=== PATIENT | male | born 1960 | race Caucasian/White ===

== ENCOUNTER 2020-09-02 14:39 | Emergency (ER) | payer BC, OTHER ==
--- OUTSIDE RECORDS SUMMARY | 2020-09-02 14:55 | XMS REPORT | Continuity of Care Document ---
:1960 Author Organization [facility] t Address [address] [place] [address] Care Team Providers Name Role Phone Unavailable Unavailable Unavailable Problems Condition Condition Condition Status Onset Resolution Last Treating Co mments Source Name Details Category Date Date Treatment Clinician Date Mixed Mixed Problem Active [facility] hyperlipid Collette kes - emia emia [facility] Allergic Allergic Problem [facility] Emotional Emotional Problem Active [facility] disorder disorder [facility] Screening Screening Problem Active [facility] - prostate prostate [facility]ori a cancer cancer l [facility] Encounter Encounter Problem Active [facility] - general general Memoria adult adult l medical medical Outpati examinatio examinatio en t n with n with Clinics abnormal abnormal findings findings Type 2 Type [address] [facility] diabetes diabetes [facility] - mellitus mellitus Memori a with with l hyperglyce hyperglyce Ou tpati kavita, kavita, ent without without Clinics long-term long-term current current use of use of insulin insulin Allergies, Adverse Reactions, Alerts This patient has no known allergies or adverse reactions. Medications Ordered Filled Start Stop Current Ordering Indication Dosage Frequency Signature Comments Components Source Medication Medication Date Date Medication? Clinician (SIG) Name Name Allergy Allergy Yes Bella [address] [facility] Relief Relief [facility] Aspirin Aspirin Yes Bella [address] [facility] Adult Low Adult Low [facility] - Strength Strength [facility]ics Rosuvastati Rosuvastati Yes Bella take one [facility] n Calcium n Calcium Keller tablet by [facility] - mouth once Memoria daily at l bedtime [facility] Cetirizine Cetirizine Yes Bella [address] [facility] HCl HCl [place] [facility] - [facility] Clinics Famotidine Famotidine Yes Bella [address] [facility] at bedtime [facility] - as needed [facility] l [facility] Metformin Metformin Yes Bella take one [facility] HCl HCl [facility] tablet by [facility] Immunizations Ordered Filled Immunization Date Status Comments Sour e Immunization Name Name Flucelvax - single Flucelvax - single 2019-09-[address] [facility] - dose syringe dose syringe 00:00:00 [facility] Flucelvax - Flucelvax - 2018-09-[address] [facility] - multidose vial multidose vial 00:00:00 [facility] Outpatient Clinics Procedures This patient has no known procedures. Encounters Start End Encounter Admission Attending Care Care Encounter Source Date/Time Date/Time Type Type Clinicians Facility Department ID 2020-03-12 2020-03-12 Outpatient Alexia Halet [id number] [facility] 08:00[facility]00 08:00:00 [facility] Medicine Outpati ent Clinics 2019-09-11 2019-09-11 [facility] [id number] [address] 09:40:00 09:40:00 [facility] Medicine Outpati ent Clinics 2019-04-05 2019-04-05 [facility] [id number] [facility] 11:40:00 11:40:00 [facility] Medicine Outpati ent Clinics 2019-03-28 2019-03-28 [facility] [id number] [address] 11:36:00 11:36:00 [facility] Medicine Medicine Outpati ent Clinics 2019-01-09 2019-01-09 [facility] [id number] [address] 08:20:00 08:20:00 [facility] Medicine Medicine Outpati ent Clinics 2018-10-30 2018-10-30 [facility] [id number] 11:14:00 11:14:00 [facility] Medicine Outpati ent Clinics 2018-09-28 2018-09-28 [facility] [id number] [facility] 10:48:00 10:48:00 [facility] 2018-09-26 2018-09-26 Outpatient Alexia Martinez [id number] [facility] 09:00:00 09:00:00 [facility] ent Clinics Results This patient has no known results.
--- NOTE | 2020-09-02 16:04 | RAD REPORT ---
EXAM DESCRIPTION: RAD - Chest Single View - 09/02/2020 3:43 pm CLINICAL HISTORY: COUGH COMPARISON: None TECHNIQUE: AP portable chest image was obtained 09/02/2020 3:43 pm . FINDINGS: Lungs are clear. Heart and vasculature are normal. No measurable pleural effusion and no p neumothorax. No acute bony abnormality seen. No acute aortic findings suspected. IMPRESSION: No acute cardiopulmonary process.
[2020-09-02 16:31] LABS: Urine Blood NEGATIVE (NEG); Urine Glucose NEGATIVE (NEG); Urine Protein NEGATIVE (NEG); Urine Specific Gravity 1.025 (1.005-1.030); Urine pH 5.5 (5.0-7.0)
--- NOTE | 2020-09-02 18:35 | ER ---
Nurse's Notes [facility] Name: Rod Martines Age: 59 yrs Sex: Male : 1960 Arrival Date: 09/02/2020 Time: 14:41 Bed 20 Private MD: Diagnosis: Acute upper respiratory infection, unspecified Presentation: 09/02 15:08 Chief complaint: Patient states: Lightheaded, fever of 99F, diarrhea all morning long. ca1 My daughter was admitted to [facility] last night for Covid and I was exposed to her. My muscles are aching right now, cough and flu like symptoms but I had a flu shot this season. I've had symptoms for a week now. Gets better then comes back again. Coronavirus screen: Client denies travel out of the [place] in the last 14 days. diarrhea, fatigue, fever, headache, muscle pain, Client presents with at least one sign or symptom that may indicate coronavirus-19. Standard/surgical mask placed on the client. Provider contacted for isolation considerations. Ebola Screen: Patient negative for fever greater than or equal to 101.5 degrees Fahrenheit, and additional compatible Ebola Virus Disease symptoms Patient denies exposure to infectious person. Patient denies travel to an Ebola-affected area in the 21 days before illness onset. No symptoms or risks identified at this time. Initial Sepsis Screen: Does the patient meet any 2 criteria? No. Patient's initial sepsis screen is negative. Does the patient have a suspected source of infection? No. Patient's initial sepsis screen is negative. Risk Assessment: Do you want to hurt yourself or someone else? Patient reports no desire to harm self or others. Onset of symptoms was September 02, 2020. 15:08 Method Of Arrival: Ambulatory ca1 15:08 Acuity: NEAL 3 ca1 Historical: - Allergies: 15:13 No Known Allergies; ca1 - Home Meds: 15:13 Metformin Oral [Active]; ca1 - PMHx: 15:13 Diabetes - NIDDM; High Cholesterol; ca1 - PSHx: 15:13 Cervical laminectomy; ca1 - Immunization history:: Adult Immunizations up to date, Flu vaccine is up to date. - Social history:: Smoking status: Patient/guardian denies using tobacco, the patient reports quitting approximately 20 years ago. Screenin:45 Abuse screen: Denies threats or abuse. Denies injuries from another. Nutritional jl7 screening: No deficits noted. Tuberculosis screening: No symptoms or risk factors identified. Fall Risk None identified. Assessment: 18:45 General: Appears in no apparent distress. uncomfortable, Behavior is calm, cooperative, jl7 appropriate for age. Pain: Denies pain. Neuro: Level of Consciousness is awake, alert, obeys commands, Oriented to person, place, time, situation. Cardiovascular: Patient's skin is warm and dry. Respiratory: Airway is patent Respiratory effort is even, unlabored, Respiratory pattern is regular, symmetrical. Derm: Skin is pink, warm \T\ dry. Vital Signs: 15:08 BP 125 / 87; Pulse 92; Resp 19 S; Temp 97.1(TE); Pulse Ox 100% on R/A; Weight 83.91 kg ca1 (R); Height 5 ft. 8 in. (172.72 cm) (R); Pain 2/10; 18:13 Temp 99.3(O); aa5 15:08 Body Mass Index 28.13 (83.91 kg, 172.72 cm) ca1 ED Course: 14:41 Patient arrived in ED. ag5 15:12 Triage completed. ca1 15:13 Arm band placed on right wrist. ca1 15:21 Flu Sent. ca1 15:27 [facility]C [facility] kb 15:27 Chris Rendon MD is Attending Physician. kb 15:44 Chest Single View XRAY In Process Unspecified. EDMS 18:15 Carla Trent, RN is Primary Nurse. jl7 18:45 Patient has correct armband on for positive identification. Bed in low position. Call jl7 light in reach. Side rails up X 1. 18:45 COVID swab sent to lab. jl7 19:01 No provider procedures requiring assistance completed. Patient did not have IV access jl7 during this emergency room visit. Administered Medications: 18:59 Drug: Decadron 6 mg Route: PO; jl7 19:00 Follow up: Response: Medication administered at discharge. jl7 Outcome: 18:34 Discharge ordered by . kb 19:01 Discharged to home ambulatory. jl7 19:01 Condition: stable 19:01 Discharge instructions given to patient, Instructed on discharge instructions, follow up and referral plans. medication usage, Demonstrated understanding of instructions, follow-up care, medications, Prescriptions given X 2. 19:01 Patient left the ED. jl7 Signatures: Dispatcher [employer] EDMS Radha Meyer, ALMAZ-Carlos MUSE-Tanesha Jung, RN RN aa5 Carla Trent RN RN jl7 Nathalia Sher RN RN ca1 Jose A Ceballos [facility]
--- NOTE | 2020-09-02 18:35 | EDPHYS ---
Physician Documentation [facility] Name: Rod Martines Age: 59 yrs Sex: Male : 1960 Arrival Date: 09/02/2020 Time: 14:41 Bed 20 Private MD: ED Physician Chris Rendon HPI: 09/03 00:17 This 59 yrs old Male presents to ER via Ambulatory with complaints of Fever, kb Cough, R/O COVID. 00:17 The patient or guardian reports cough, that is intermittent, described as moderate, kb with no sputum, flu symptoms, low-grade fever, myalgias. Onset: The symptoms/episode began/occurred 1 week(s) ago. Severity of symptoms: At their worst the symptoms were moderate, in the emergency department the symptoms are unchanged. Modifying factors: The symptoms are alleviated by nothing, the symptoms are aggravated by nothing. Associated signs and symptoms: Pertinent positives: diarrhea, fever, Pertinent negatives: chest pain, ear ache, nausea, rhinorrhea, sore throat, vomiting. The patient has not experienced similar symptoms in the past. The patient has not recently seen a physician. Pt reports daughter has COVID. He has had muscle aches, fever, cough for a week, diarrhea today. States "I got the flu shot so I don't know why I'm having all of these flu symptoms.". Historical: - Allergies: 09/02 15:13 No Known Allergies; ca1 - Home Meds: 15:13 Metformin Oral [Active]; ca1 - PMHx: 15:13 Diabetes - NIDDM; High Cholesterol; ca1 - PSHx: 15:13 Cervical laminectomy; ca1 - Immunization history:: Adult Immunizations up to date, Flu vaccine is up to date. - Social history:: Smoking status: Patient/guardian denies using tobacco, the patient reports quitting approximately 20 years ago. ROS: 09/03 00:18 Cardiovascular: Negative for chest pain, palpitations, and edema, Back: Negative for kb injury and pain, MS/Extremity: Negative for injury and deformity, Skin: Negative for injury, rash, and discoloration, Neuro: Negative for headache, weakness, numbness, tingling, and seizure. Constitutional: Positive for body aches, chills, fever, malaise. Respiratory: Positive for cough, Negative for dyspnea on exertion, hemoptysis, orthopnea, pleurisy, shortness of breath, sputum production, wheezing. Abdomen/GI: Positive for diarrhea. Exam: 00:18 Constitutional: This is a well developed, well nourished patient who is awake, alert, kb and in no acute distress. Head/Face: Normocephalic, atraumatic. Chest/axilla: Normal chest wall appearance and motion. Nontender with no deformity. No lesions are appreciated. Cardiovascular: Regular rate and rhythm with a normal S1 and S2. No gallops, murmurs, or rubs. Normal PMI, no JVD. No pulse deficits. Respiratory: Lungs have equal breath sounds bilaterally, clear to auscultation and percussion. No rales, rhonchi or wheezes noted. No increased work of breathing, no retractions or nasal flaring. Abdomen/GI: Soft, non-tender, with normal bowel sounds. No distension or tympany. No guarding or rebound. No evidence of tenderness throughout. Skin: Warm, dry with normal turgor. Normal color with no rashes, no lesions, and no evidence of cellulitis. MS/ Extremity: Pulses equal, no cyanosis. Neurovascular intact. Full, normal range of motion. Neuro: Awake and alert, GCS 15, oriented to person, place, time, and situation. Cranial nerves II-XII grossly intact. Motor strength 5/5 in all extremities. Sensory grossly intact. Cerebellar exam normal. Normal gait. Vital Signs: 09/02 15:08 BP 125 / 87; Pulse 92; Resp 19 S; Temp 97.1(TE); Pulse Ox 100% on R/A; Weight 83.91 kg ca1 (R); Height 5 ft. 8 in. (172.72 cm) (R); Pain 2/10; 18:13 Temp 99.3(O); aa5 15:08 Body Mass Index 28.13 (83.91 kg, 172.72 cm) ca1 MDM: 18:10 Patient medically screened. kb 09/03 00:17 Data reviewed: vital signs, nurses notes. Data interpreted: Pulse oximetry: on room air kb is 100 %. Interpretation: normal. Counseling: I had a detailed discussion with the patient and/or guardian regarding: the historical points, exam findings, and any diagnostic results supporting the discharge/admit diagnosis, lab results, radiology results, the need for outpatient follow up, a family practitioner, to return to the emergency department if symptoms worsen or persist or if there are any questions or concerns that arise at home. 09/02 15:15 Order name: Flu; Complete Time: 16:28 kb 09/02 15:55 Order name: Urine Dipstick--Ancillary (enter results); Complete Time: 16:34 bd 09/02 15:27 Order name: Chest Single View XRAY; Complete Time: 16:11 kb 09/02 18:33 Order name: COVID-19 kb Administered Medications: 09/02 18:59 Drug: Decadron 6 mg Route: PO; jl7 19:00 Follow up: Response: Medication administered at discharge. jl7 Disposition: 09/03 07:12 Co-signature as Attending Physician, Chris Rendon MD I agree with the assessment and kdr plan of care. Disposition: 09/02/20 18:34 Discharged to Home. Impression: Acute upper respiratory infection, unspecified. - Condition is Stable. - Discharge Instructions: Upper Respiratory Infection, Adult, [id number], COVID-19. - Prescriptions for Medrol (Jon) 4 mg Oral Tablets, Dose Pack - take 1 tablet by ORAL route as directed - follow package instructions; 1 packet. Zithromax 500 mg Oral Tablet - take 1 tablet by ORAL route once daily for 5 days; 5 tablet. - Medication Reconciliation Form, Thank You Letter, Antibiotic Education, Prescription Opioid Use form. - Follow up: Emergency Department; When: As needed; Reason: Worsening of condition. Follow up: Private Physician; When: 2 - 3 days; Reason: Recheck today's complaints, Continuance of care, Re-evaluation by your physician. Signatures: Dispatcher [employer] EDUT Radha Meyer, Chris Masters MD MD kdr Leal, Jahala, RN RN jl7 Nathalia Sher RN RN ca1 Corrections: (The following items were deleted from the chart) 09/02 19:01 18:34 09/02/2020 18:34 Discharged to Home. Impression: Acute upper respiratory jl7 infection, unspecified. Condition is Stable. Forms are Medication Reconciliation Form, Thank You Letter, Antibiotic Education, Prescription Opioid Use. Follow up: Emergency Department; When: As needed; Reason: Worsening of condition. Follow up: Private Physician; When: 2 - 3 days; Reason: Recheck today's complaints, Continuance of care, Re-evaluation by your physician. kb
[2020-09-02] MEDS ORDERED: dexAMETHasone 4 MG TAB ONE (18:59)
== END 2020-09-02 19:01 | disposition home or self-care (01) ==
LOC: ER 14:39
DX: U07.1 COVID-19 (principal); J06.9 Acute upper respiratory infection, unspecified; E11.9 Type 2 diabetes mellitus without complications
CPT/HCPCS: 81003; 87804 ×2; 71045; 99284; U0002; J8540

== ENCOUNTER 2020-09-13 18:33 | Emergency (ER) | payer BC ==
--- OUTSIDE RECORDS SUMMARY | 2020-09-13 18:34 | XMS REPORT | Continuity of Care Document ---
:1960 Author Organization [facility] t Address [address] [place] [address] Care Team Providers Name Role Phone Unavailable Unavailable Unavailable Problems Condition Condition Condition Status Onset Resolution Last Treating Co mments Source Name Details Category Date Date Treatment Clinician Date Mixed Mixed Problem Active [facility]lipid Collette kes - emia emia [facility] Allergic Allergic Problem Active [facility] Emotional Emotional Problem Active [facility] disorder disorder [facility] Screening Screening Problem Active [facility] - prostate prostate Memori a cancer cancer l [facility] Encounter Encounter Problem Active [...] Bella [address] [facility] Relief Relief [place] [facility] Aspirin Aspirin Yes Bella [address] [facility] Adult Low Adult Low [place] Luke s - Strength Strength Memoria l [facility] Rosuvastati Rosuvastati Yes Bella take one [facility] n Calcium n Calcium [place] tablet by [facility] - mouth once Memoria daily at l bed[facility] Cetirizine Cetirizine Yes Bella [address] [facility] [address] HCl HCl [place] [facility] - [facility] ent Clinics Famotidine Famotidine Yes Bella [address] [facility] [place] at bedtime [facility] - as needed [facility] Metformin Metformin Yes Bella take one [facility] HCl HCl [place] [facility] Immunizations Ordered Filled Immunization Date Status Comments Sour e Immunization Name Name Flucelvax - single Flucelvax - single 2019-09-[address] [facility] - dose syringe dose syringe 00:00:00 [facility] Flucelvax - Flucelvax - 2018-09-[address] [facility] - multidose vial multidose vial 00:00:00 [facility] Outpatient Clinics Procedures This patient has no known procedures. Encounters Start End Encounter Admission Attending Care Care Encounter Source Date/Time Date/Time Type Type Clinicians Facility Department ID 2020-03-12 2020-03-12 Outpatient Alexia Halet [id number] [facility] 08:00:00 08:00:00 [facility] Medicine Outpati ent Clinics 2019-09-11 2019-09-11 [facility] [id number] 09:40:00 09:40:00 [facility] Medicine Outpati ent Clinics 2019-04-05 2019-04-05 [facility] [id number] [facility] 11:40:00 11:40:00 [facility] Medicine Outpati ent Clinics 2019-03-28 2019-03-28 [facility] [id number] [facility] 11:36:00 11:36:[address] [facility] Medicine Medicine Outpati ent Clinics 2019-01-09 2019-01-09 [facility] [id number] [facility] 08:20:00 08:20:[address] [facility] Medicine Medicine Outpati ent Clinics 2018-10-30 2018-10-30 [facility] [id number] 11:14:00 11:14:00 [facility] Medicine Outpati ent Clinics 2018-09-28 2018-09-28 [facility] [id number] [facility] 10:48:00 10:48:00 [facility] 2018-09-26 2018-09-26 Outpatient Alexia Martinez [id number] [facility] 09:00:00 09:00:00 [facility] ent Clinics Results This patient has no known results.
[2020-09-13] MEDS ORDERED: ASPIRIN 81 MG CHEWABLE TABLET ONE (19:25)
[2020-09-13] MEDS ORDERED: THIAMINE 200 MG/2 ML INJ ONE (19:25)
[2020-09-13] MEDS ORDERED: NA CHLORIDE 0.9% 1,000 ML ONE (19:26)
[2020-09-13 19:27] LABS: Barbiturates NEGATIVE (NEGATIVE); Benzodiazepines NEGATIVE (NEGATIVE); Cocaine NEGATIVE (NEGATIVE); METHAMPHETAM NEGATIVE (NEGATIVE); Methadone NEGATIVE (NEGATIVE); Opiates NEGATIVE (NEGATIVE); Phencyclidine NEGATIVE (NEGATIVE); THC Cannibis NEGATIVE (NEGATIVE)
[2020-09-13] MEDS ORDERED: FOLIC ACID 5 MG/ML VIAL ONE (19:27)
[2020-09-13 19:32] LABS: Absolute Lymphocytes (CBC) 2.3 K/uL (0.7-4.9); Basophils % 1.8 % (0-1.3); Hematocrit 40.9 % (39.6-49.0); Lymphocytes % 26.7 % (15.3-44.8); RBC Red Blood Cell Count 4.73 M/uL (4.33-5.43)
[2020-09-13 19:36] LABS: Protime INR 0.98
[2020-09-13 19:39] LABS: Urine Blood NEGATIVE (NEG); Urine Glucose NEGATIVE (NEG); Urine Protein NEGATIVE (NEG); Urine Specific Gravity 1.015 (1.005-1.030)
[2020-09-13 19:57] LABS: ALT/SGPT 21 U/L (12-78); AST/SGOT 13 U/L (15-37); Albumin 3.2 g/dL (3.4-5.0); Alkaline Phosphatase 77 U/L (45-117); BUN Blood Urea Nitrogen 13 mg/dL (7-18); Bicarbonate 30 mmol/L (21-32); Bilirubin Direct 0.2 mg/dL (0-0.2); Bilirubin Total 0.9 mg/dL (0.2-1.0); Glucose Level 110 mg/dL (74-106); Magnesium 2.2 mg/dL (1.8-2.4); NT PRO-BNP 61 pg/mL (<125); Potassium 3.6 mmol/L (3.5-5.1); Protein, Total 6.9 g/dL (6.4-8.2); Sodium Level 142 mmol/L (136-145); Troponin (Emerg Dept Use Only) < 0.02 ng/mL (0.0-0.045)
--- NOTE | 2020-09-13 20:09 | RAD REPORT ---
EXAM DESCRIPTION: CT - Head Brain Wo Cont - 09/13/2020 7:47 pm CLINICAL HISTORY: CONFUSED, COVID positive history COMPARISON: No comparisonsNo comparisons TECHNIQUE: Axial 5 mm thick images of the head were obtained without IV contrast. All CT scans are performed using dose optimization technique as appropriate and may include automated exposure control or mA/KV adjustment according to patient size. FINDINGS: No intracranial hemorrhage, mass, edema or shift of mid-line structures. No acute infarcti on changes seen. Mild to moderate for age atrophy changes are present. Ventricles are in proportion t o the amount of volume loss. Chronic ischemic change appears minimal. Mastoid air cells and visualized portions of the paranasal sinuses are clear. No acute bony findings. IMPRESSION: No hemorrhage, mass or acute intracranial finding. Atrophy changes are present with minimal chronic ischemic change. Ventricles are in proportion to vol ume loss.
--- NOTE | 2020-09-13 20:15 | RAD REPORT ---
EXAM DESCRIPTION: RAD - Chest Single View - 09/13/2020 7:35 pm CLINICAL HISTORY: COUGH COMPARISON: Portable September 02 TECHNIQUE: AP portable chest image was obtained 09/13/2020 7:35 pm . FINDINGS: No consolidation or mass lesion. No convincing evidence for ground-glass opacification. In terstitial pattern is not substantially different when adjusting for the more shallow inspiration. He art and vasculature are normal. No measurable pleural effusion and no pneumothorax. No acute bony abn ormality seen. No acute aortic findings suspected. IMPRESSION: Limited low lung volume examination without acute cardiopulmonary finding.
--- NOTE | 2020-09-13 20:31 | ER ---
Nurse's Notes [facility] Name: Rod Martines Age: 60 yrs Sex: Male : 1960 Arrival Date: 09/13/2020 Time: 18:37 Bed 7 Private MD: Diagnosis: Type 2 diabetes mellitus;Weakness Presentation: 09/13 18:41 Chief complaint: EMS states: SUBJECTIVE AMNESIA SINCE 929, COV+. Coronavirus screen: bp Client reports previous positive COVID test result. Ebola Screen: No symptoms or risks identified at this time. Initial Sepsis Screen: Does the patient meet any 2 criteria? No. Patient's initial sepsis screen is negative. Does the patient have a suspected source of infection? No. Patient's initial sepsis screen is negative. Risk Assessment: Do you want to hurt yourself or someone else? Patient reports no desire to harm self or others. Onset of symptoms was September 13, 2020 at 09:30. Care prior to arrival: Glucose check: 141. 18:41 Method Of Arrival: EMS: [facility] bp 18:41 Acuity: NEAL 2 bp Triage Assessment: 18:44 General: Appears in no apparent distress. comfortable, Behavior is cooperative, bp appropriate for age, anxious. Pain: Denies pain. EENT: No deficits noted. Neuro: Level of Consciousness is awake, alert, obeys commands, Oriented to person, place, time, situation, Appropriate for age. Cardiovascular: No deficits noted. Respiratory: No deficits noted. GI: No signs and/or symptoms were reported involving the gastrointestinal system. : No signs and/or symptoms were reported regarding the genitourinary system. Derm: No deficits noted. Musculoskeletal: No deficits noted. Historical: - Allergies: 18:44 No Known Allergies; bp - Home Meds: 18:44 Metformin Oral [Active]; Metoprolol Tartrate Oral [Active]; bp - PMHx: 18:44 Diabetes - NIDDM; High Cholesterol; Hypertension; bp - PSHx: 18:44 C5; Knee surgery; aa5 - Immunization history:: Adult Immunizations up to date. - Social history:: Smoking status: unknown. - Family history:: not pertinent. Screenin:45 Abuse screen: Denies threats or abuse. Denies injuries from another. Nutritional bp screening: No deficits noted. Tuberculosis screening: No symptoms or risk factors identified. Fall Risk None identified. Assessment: 18:45 General: SEE TRIAGE NOTE. NO FOCAL NEURO DEFICITS. bp 19:23 General: Appears in no apparent distress. Behavior is calm, cooperative, appropriate ea for age. Pain: Denies pain. Neuro: Level of Consciousness is awake, alert, obeys commands, Oriented to person, place, time, situation. Cardiovascular: Patient's skin is warm and dry. Respiratory: Airway is patent Respiratory effort is even, unlabored, Respiratory pattern is regular, symmetrical. Derm: Skin is pink, warm \T\ dry. 20:56 Reassessment: Patient and/or family updated on plan of care and expected duration. Pain ea level reassessed. Patient is alert, oriented x 3, equal unlabored respirations, skin warm/dry/pink. Discharge instruction given to patient verbalized the understanding of instruction. Pt left ED ambulatory tolerating well. Vital Signs: 18:41 BP 136 / 68; Pulse 82; Resp 16; Temp 97.8; Pulse Ox 98% ; Weight 81.65 kg; Height 5 ft. bp 8 in. (172.72 cm); 19:24 BP 141 / 94; Pulse 84; Resp 18; Pulse Ox 95% on R/A; ea 20:45 BP 122 / 92; Pulse 64; Resp 18; Temp 98; Pulse Ox 99% on R/A; ea 18:41 Body Mass Index 27.37 (81.65 kg, 172.72 cm) bp NIH Stroke Scale Scores: 18:50 NIHSS Score: [facility] ED Course: 18:37 Patient arrived in ED. iw 18:39 Sushant Vargas MD is Attending Physician. nicola 18:43 Triage completed. bp 18:44 Arm band placed on. bp 18:45 Patient has correct armband on for positive identification. Bed in low position. Call bp light in reach. Side rails up X2. 18:56 Álvaro Hernández, JAKE is Primary Nurse. rv 19:28 Inserted saline lock: 20 gauge in right antecubital area, using aseptic technique. dh4 Blood collected. 19:32 Sushant Pradhan PA is PHCP. cp 19:36 XRAY Chest (1 view) In Process Unspecified. EDMS 19:46 CT Head Brain wo Cont In Process Unspecified. EDMS 20:31 Kody Swan MD is Referral Physician. cp 20:56 No provider procedures requiring assistance completed. IV discontinued, intact, ea bleeding controlled, No redness/swelling at site. Pressure dressing applied. Administered Medications: 19:20 Drug: Thiamine 100 mg Route: IV; Rate: bolus; Site: right antecubital; ea 20:45 Follow up: Response: No adverse reaction; IV Status: Completed infusion ea 19:20 Drug: NS 0.9% 1000 ml Route: IV; Rate: 1 bolus; Site: right antecubital; ea 20:45 Follow up: Response: No adverse reaction; IV Status: Completed infusion; IV Intake: ea 1000ml 19:21 Drug: foLIC Acid 1 mg Route: IVPB; Site: right antecubital; ea 20:45 Follow up: Response: No adverse reaction; IV Status: Completed infusion ea 20:43 Drug: Aspirin Chewable Tablet 324 mg Route: PO; ea 20:59 Follow up: Response: Medication administered at discharge. ea Intake: 20:45 IV: 1000ml; Total: 1000ml. ea Outcome: 20:31 Discharge ordered by . cp 20:57 Discharged to home ambulatory, with family. ea 20:57 Condition: stable 20:57 Discharge instructions given to patient, Instructed on discharge instructions, follow up and referral plans. medication usage, Demonstrated understanding of instructions, follow-up care, medications, Prescriptions given X 1. 20:58 Patient left the ED. ea NIH Stroke Scale - NIH Stroke Score Date: 09/13/2020 Time: 18:50 Total Score = 0 1a. Level of Consciousness (LOC) - 0(Alert) 1b. Level of Consciousness (LOC) (Year \T\ Age) - 0(Both) 1c. LOC Commands (Open \T\ Closes Eyes/Bone Process Operator) - 0(Both) 2. Best Gaze (Lateral Gaze Paresis) - 0(Normal) 3. Visual Field Loss - 0(No visual loss) 4. Facial Palsy - 0(Normal) 5a. Left Arm: Motor (10-second hold) - 0(No drift) 5b. Right Arm: Motor (10-second hold) - 0(No drift) 6a. Left Leg: Motor (5-second hold - always test supine) - 0(No drift) 6b. Right Leg: Motor (5-second hold - always test supine) - 0(No drift) 7. Limb Ataxia (finger/nose \T\ heel/alvarado - test with eyes open) - 0(Absent) 8. Sensory Loss (pinprick arms/legs/face) - 0(Normal) 9. Best Language: Aphasia (description/naming/reading) - 0(No aphasia) 10. Dysarthria (speech clarity - read or repeat words) - 0(Normal) 11. Extinction and Inattention (visual/tactile/auditory/spatial/personal) - 0(No abnormality) Initials: nicola Signatures: Dispatcher [employer] EDSushant Brasher MD MD cha Williams, Irene, RN Tanesha Varghese RN RN aa5 Sushant Pradhan PA PA cp Antunez, Elena, RN Mckinley Pinto ea, RN Álvaro Rodriguez RN RN rv Huhn, [facility]
--- NOTE | 2020-09-13 20:31 | EDPHYS ---
Physician Documentation [facility] Name: Rod Martines Age: 60 yrs Sex: Male : 1960 Arrival Date: 09/13/2020 Time: 18:37 Bed 7 Private MD: ED Physician Sushant Vargas HPI: 09/13 18:50 This 60 yrs old Male presents to ER via EMS with complaints of Memory Loss. nicola 18:50 The patient's problem is reported as memory issues. Onset: The symptoms/episode nicola began/occurred just prior to arrival. Duration: intermittent. Context: the episode(s) was witnessed, by family, . The symptoms are alleviated by nothing. The symptoms are aggravated by nothing. Associated signs and symptoms: The patient has no apparent associated signs or symptoms. Severity of symptoms: At their worst the symptoms were very mild in the emergency department the symptoms have resolved and did so just prior to arrival. Patient's baseline: Neuro: alert and fully oriented. The patient has not experienced similar symptoms in the past, recent covid. Historical: - Allergies: 18:44 No Known Allergies; bp - Home Meds: 18:44 Metformin Oral [Active]; Metoprolol Tartrate Oral [Active]; bp - PMHx: 18:44 Diabetes - NIDDM; High Cholesterol; Hypertension; bp - PSHx: 18:44 C5; Knee surgery; aa5 - Immunization history:: Adult Immunizations up to date. - Social history:: Smoking status: unknown. - Family history:: not pertinent. ROS: 18:50 Constitutional: Negative for fever, chills, and weight loss, Eyes: Negative for injury, nicola pain, redness, and discharge, ENT: Negative for injury, pain, and discharge, Neck: Negative for injury, pain, and swelling, Cardiovascular: Negative for chest pain, palpitations, and edema, Respiratory: Negative for shortness of breath, cough, wheezing, and pleuritic chest pain, Abdomen/GI: Negative for abdominal pain, nausea, vomiting, diarrhea, and constipation, Back: Negative for injury and pain, : Negative for injury, bleeding, discharge, and swelling, MS/Extremity: Negative for injury and deformity, Skin: Negative for injury, rash, and discoloration, Psych: Negative for depression, anxiety, suicide ideation, homicidal ideation, and hallucinations, Allergy/Immunology: Negative for hives, rash, and allergies, Endocrine: Negative for neck swelling, polydipsia, polyuria, polyphagia, and marked weight changes, Hematologic/Lymphatic: Negative for swollen nodes, abnormal bleeding, and unusual bruising. 18:50 Neuro: Positive for cant remember details. Exam: 18:50 Constitutional: This is a well developed, well nourished patient who is awake, alert, nicola and in no acute distress. Head/Face: Normocephalic, atraumatic. Eyes: Pupils equal round and reactive to light, extra-ocular motions intact. Lids and lashes normal. Conjunctiva and sclera are non-icteric and not injected. Cornea within normal limits. Periorbital areas with no swelling, redness, or edema. ENT: Nares patent. No nasal discharge, no septal abnormalities noted. Tympanic membranes are normal and external auditory canals are clear. Oropharynx with no redness, swelling, or masses, exudates, or evidence of obstruction, uvula midline. Mucous membranes moist. Neck: Trachea midline, no thyromegaly or masses palpated, and no cervical lymphadenopathy. Supple, full range of motion without nuchal rigidity, or vertebral point tenderness. No Meningismus. Chest/axilla: Normal chest wall appearance and motion. Nontender with no deformity. No lesions are appreciated. Cardiovascular: Regular rate and rhythm with a normal S1 and S2. No gallops, murmurs, or rubs. Normal PMI, no JVD. No pulse deficits. Respiratory: Lungs have equal breath sounds bilaterally, clear to auscultation and percussion. No rales, rhonchi or wheezes noted. No increased work of breathing, no retractions or nasal flaring. Abdomen/GI: Soft, non-tender, with normal bowel sounds. No distension or tympany. No guarding or rebound. No evidence of tenderness throughout. Back: No spinal tenderness. No costovertebral tenderness. Full range of motion. Male : Normal genitalia with no discharge or lesions. Skin: Warm, dry with normal turgor. Normal color with no rashes, no lesions, and no evidence of cellulitis. MS/ Extremity: Pulses equal, no cyanosis. Neurovascular intact. Full, normal range of motion. Neuro: Awake and alert, GCS 15, oriented to person, place, time, and situation. Cranial nerves II-XII grossly intact. Motor strength 5/5 in all extremities. Sensory grossly intact. Cerebellar exam normal. Normal gait. Psych: Awake, alert, with orientation to person, place and time. Behavior, mood, and affect are within normal limits. 18:50 Neuro: Orientation: is normal, Mentation: is normal, appropriate for stated age, no acute changes, Memory: is normal, appropriate for stated age, no acute changes, Cranial nerves: grossly normal, is grossly normal based on the patient's age, no acute changes, Cerebellar function: is grossly normal, is grossly normal based on the patient's age, no acute changes, Motor: is grossly normal based on the patient's age, no acute changes, moves all fours, strength is normal, strength is 5/5 in all extremities, Sensation: is normal, no obvious gross deficits, appropriate no acute changes, Gait: is steady, appropriate for age, Deep tendon reflexes are 2+ (normal) in the bilateral brachioradialis, bicep, tricep and patellar and Achilles tendons, Babinski testing is normal, seizure activity, is not displayed by the patient. 19:29 ECG was reviewed by the Attending Physician. nicola 20:10 Radiologist reports: neg , see reports nicola Vital Signs: 18:41 BP 136 / 68; Pulse 82; Resp 16; Temp 97.8; Pulse Ox 98% ; Weight 81.65 kg; Height 5 ft. bp 8 in. (172.72 cm); 19:24 BP 141 / 94; Pulse 84; Resp 18; Pulse Ox 95% on R/A; ea 20:45 BP 122 / 92; Pulse 64; Resp 18; Temp 98; Pulse Ox 99% on R/A; ea 18:41 Body Mass Index 27.37 (81.65 kg, 172.72 cm) bp NIH Stroke Scale Scores: 18:50 NIHSS Score: 0 nicola MDM: 18:39 Patient medically screened. nicola 19:11 Differential diagnosis: CVA, TIA, Dementia, metabolic disorder, drug effects. Data nicola reviewed: vital signs, nurses notes, lab test result(s), EKG, radiologic studies, plain films. Data interpreted: industrial trainer: rate is 82 beats/min, rhythm is regular, Pulse oximetry: on room air is 98 %. Test interpretation: by ED physician or midlevel provider: ECG, plain radiologic studies. Counseling: I had a detailed discussion with the patient and/or guardian regarding: the historical points, exam findings, and any diagnostic results supporting the discharge/admit diagnosis, lab results, radiology results, the need for outpatient follow up, for definitive care, a family practitioner, a neurologist. 09/13 18:49 Order name: Basic Metabolic Panel [facility] 09/13 18:49 Order name: CBC with Diff [facility] 09/13 18:49 Order name: LFT's [facility] 09/13 18:49 Order name: Magnesium [facility] 09/13 18:49 Order name: NT PRO-BNP [facility] 09/13 18:49 Order name: PT-INR; Complete Time: 19:57 [facility] 09/13 18:49 Order name: Troponin (emerg Dept Use Only); Complete Time: 20:09 [facility] 09/13 18:49 Order name: Acetaminophen; Complete Time: 20:09 [facility] 09/13 18:49 Order name: ETOH Level; Complete Time: 20:09 [facility] 09/13 18:49 Order name: Ptt, Activated; Complete Time: 19:57 [facility] 09/13 18:49 Order name: Salicylate; Complete Time: 20:09 [facility] 09/13 18:49 Order name: Urine Drug Screen; Complete Time: 19:57 [facility] 09/13 18:50 Order name: Basic Metabolic Panel; Complete Time: 20:09 [facility] 09/13 18:50 Order name: CBC with Automated Diff; Complete Time: 19:57 [facility] 09/13 18:49 Order name: XRAY Chest (1 view); Complete Time: 20:30 [facility] 09/13 20:30 Interpretation: Report reviewed. 09/13 18:49 Order name: EKG; Complete Time: 18:51 [facility] 09/13 18:49 Order name: Cardiac monitoring; Complete Time: 19:21 [facility] 09/13 18:49 Order name: EKG - Nurse/Tech; Complete Time: 19:28 [facility] 09/13 18:49 Order name: IV Saline Lock; Complete Time: 19:21 [facility] 09/13 18:49 Order name: CT Head Brain wo Cont; Complete Time: 20:30 [facility] 09/13 18:50 Order name: Liver (Hepatic) Function; Complete Time: 20:09 [facility] 09/13 18:50 Order name: Magnesium; Complete Time: 20:09 [facility] 09/13 18:50 Order name: NT PRO-BNP; Complete Time: 20:09 [facility] 09/13 19:01 Order name: Sed Rate; Complete Time: 20:09 [facility] 09/13 19:01 Order name: CRP; Complete Time: 19:57 [facility] 09/13 19:04 Order name: Urine Dipstick--Ancillary (enter results); Complete Time: 19:57 [facility] 09/13 18:49 Order name: Labs collected and sent; Complete Time: 19:21 [facility] 09/13 18:49 Order name: O2 Per Protocol; Complete Time: 19:21 [facility] 09/13 18:49 Order name: O2 Sat Monitoring; Complete Time: 19:21 [facility] 09/13 18:49 Order name: Urine Dipstick-Ancillary (obtain specimen); Complete Time: 19:41 [facility] EC:29 Rate is 68 beats/min. Rhythm is regular. QRS [place] is Normal. NM interval is normal. QRS nicola interval is normal. QT interval is normal. No Q waves. T waves are Normal. No ST changes noted. Clinical impression: Normal ECG and No evidence of ischemia. Interpreted by me. Reviewed by me. Administered Medications: 19:20 Drug: Thiamine 100 mg Route: IV; Rate: bolus; Site: right antecubital; ea 20:45 Follow up: Response: No adverse reaction; IV Status: Completed infusion ea 19:20 Drug: NS 0.9% 1000 ml Route: IV; Rate: 1 bolus; Site: right antecubital; ea 20:45 Follow up: Response: No adverse reaction; IV Status: Completed infusion; IV Intake: ea 1000ml 19:21 Drug: foLIC Acid 1 mg Route: IVPB; Site: right antecubital; ea 20:45 Follow up: Response: No adverse reaction; IV Status: Completed infusion ea 20:43 Drug: Aspirin Chewable Tablet 324 mg Route: PO; ea 20:59 Follow up: Response: Medication administered at discharge. ea Disposition: 09/13/20 20:31 Discharged to Home. Impression: Type 2 diabetes mellitus, Weakness. - Condition is Stable. - Discharge Instructions: Type 2 Diabetes Mellitus, Diagnosis, Adult, Weakness, Alcohol Abuse and Nutrition, Weakness, [id number], Aspirin and Your Heart, Type 2 Diabetes Mellitus, Diagnosis, Adult, [id number]. - Prescriptions for Folic Acid 1 mg Oral Tablet - take 1 tablet by ORAL route once daily; 30 tablet. - Medication Reconciliation Form, Thank You Letter, Antibiotic Education, Prescription Opioid Use form. - Follow up: Private Physician; When: 2 - 3 days; Reason: Recheck today's complaints, Continuance of care, Re-evaluation by your physician. Follow up: [place] [facility]; When: 2 - 3 days; Reason: Recheck today's complaints, Re-evaluation by your physician. - Problem is new. - Symptoms have improved. NIH Stroke Scale - NIH Stroke Score Date: 09/13/2020 Time: 18:50 Total Score = 0 1a. Level of Consciousness (LOC) - 0(Alert) 1b. Level of Consciousness (LOC) (Year \T\ Age) - 0(Both) 1c. LOC Commands (Open \T\ Closes Eyes/Manager Mining) - 0(Both) 2. Best Gaze (Lateral Gaze Paresis) - 0(Normal) 3. Visual Field Loss - 0(No visual loss) 4. Facial Palsy - 0(Normal) 5a. Left Arm: Motor (10-second hold) - 0(No drift) 5b. Right Arm: Motor (10-second hold) - 0(No drift) 6a. Left Leg: Motor (5-second hold - always test supine) - 0(No drift) 6b. Right Leg: Motor (5-second hold - always test supine) - 0(No drift) 7. Limb Ataxia (finger/nose \T\ heel/alvarado - test with eyes open) - 0(Absent) 8. Sensory Loss (pinprick arms/legs/face) - 0(Normal) 9. Best Language: Aphasia (description/naming/reading) - 0(No aphasia) 10. Dysarthria (speech clarity - read or repeat words) - 0(Normal) 11. Extinction and Inattention (visual/tactile/auditory/spatial/personal) - 0(No abnormality) Initials: nicola Signatures: Dispatcher [employer] EDMS Sushant Vargas MD MD cha Calderon, Audri, RN RN aa5 Sushant Pradhan PA PA cp Antunez, Elena, RN RN ea Peltier, Brian, RN RN bp Corrections: (The following items were deleted from the chart) 19:38 18:50 ETHANOL+C.LAB.KARTHIK ordered. EDND EDND 20:58 20:31 09/13/2020 20:31 Discharged to Home. Impression: Type 2 diabetes ea mellitus; Weakness. Condition is Stable. Discharge Instructions: Type 2 Diabetes Mellitus, Diagnosis, Adult, Weakness, Alcohol Abuse and Nutrition, Weakness, Frog-sk-[id number], Aspirin and Your Heart, Type 2 Diabetes Mellitus, Diagnosis, Adult, [id number]-[id number]. Prescriptions for Folic Acid 1 mg Oral Tablet - take 1 tablet by ORAL route once daily; 30 tablet. and Forms are Medication Reconciliation Form, Thank You Letter, Antibiotic Education, Prescription Opioid Use. Follow up: Private Physician; When: 2 - 3 days; Reason: Recheck today's complaints, Continuance of care, Re-evaluation by your physician. Follow up: Kody Swan; When: 2 - 3 days; Reason: Recheck today's complaints, Re-evaluation by your physician. Problem is new. Symptoms have improved. cp
[2020-09-17 03:36] VITALS: BP 122/92; TEMP 98; O2SAT 99
== END 2020-09-13 20:58 | disposition home or self-care (01) ==
LOC: ER 18:33
DX: R53.1 Weakness (principal); E11.9 Type 2 diabetes mellitus without complications; I10 Essential (primary) hypertension; E78.00 Pure hypercholesterolemia, unspecified
CPT/HCPCS: 93005; 85025; 80048; 36415; 80320; 83735; 80329 ×2; 85610; 80076; 80307 ×8; 85730; 85652; 81003; 84484; 83880; 86140; 70450; 71045; J3411; J7030; 96365; 99284

== ENCOUNTER 2023-09-29 08:42 | Day surgery (SDC) | payer BC ==
[2023-09-29] MEDS ORDERED: NA CHLORIDE 0.9% 1,000 ML ONE (08:57)
[2023-09-29 09:03] LABS: Potassium 3.9 mEq/L (3.5-5.1)
[2023-09-29] MEDS ORDERED: propofoL 200 MG/20 ML VIAL IV ONE ×2 (10:44→15:32)
[2023-09-29] MEDS ORDERED: LIDOCAINE 1% MPF 5 ML VIAL ONE (10:44)
[2023-09-29 13:45] VITALS: BP 123/81; TEMP 98.1; O2SAT 100
--- NOTE | 2023-09-29 15:27 | EKG ---
Test Date: 2023-09-29 Test Time: 09:35:03 Cow Tender: REGINA MEASUREMENT RESULTS: Intervals: Rate: 65 WA: 158 QRSD: 78 QT: 388 QTc: 403 [place]: P: 38 WA: 158 QRS: 22 T: 69 INTERPRETIVE STATEMENTS: Normal sinus rhythm Normal ECG Compared to ECG 09/13/2020 19:23:33 No significant changes Electronically Signed On 09-29-23 15:26:23 [employer] by Demetri Arango
== END 2023-09-29 12:23 | disposition home or self-care (01) ==
LOC: OR 08:42
PROVIDERS: ATTEND Surgery
PROC: 0DBK8ZX Excision of Ascending Colon, Via Natural or Artificial Opening Endoscopic, Diagnostic (ICD-10-PCS; principal; 2023-09-29 10:30)
DX: Z12.11 Encounter for screening for malignant neoplasm of colon (principal); N42.9 Disorder of prostate, unspecified; K57.30 Diverticulosis of large intestine without perforation or abscess without bleeding; K52.9 Noninfective gastroenteritis and colitis, unspecified; K64.8 Other hemorrhoids; D12.2 Benign neoplasm of ascending colon; I10 Essential (primary) hypertension; E11.9 Type 2 diabetes mellitus without complications; E78.00 Pure hypercholesterolemia, unspecified
CPT/HCPCS: 93005; 80048; 36415; 88305; 45380; J2704; J2001; J7030

== ENCOUNTER 2024-03-20 12:29 | Emergency (ER) | payer BC, OTHER ==
[2024-03-20 13:39] LABS: Specific Gravity 1.016 (1.005-1.030); Urine Bilirubin NEGATIVE (Negative); Urine Blood Negative (Negative); Urine Clarity Clear (Clear); Urine Color Light-Yellow (Yellow); Urine Glucose NEGATIVE (Negative); Urine Ketones NEGATIVE (Negative); Urine Microscopic Reflex YN NO UMIC; Urine Nitrite NEGATIVE (Negative); Urine Protein NEGATIVE (Negative); Urine Urobilinogen Normal (Normal); Urine pH 5.5 (5.0-7.0)
[2024-03-20 13:42] LABS: Absolute Basophils 0.1 K/uL (0-0.5); Absolute Eosinophils 0.3 K/uL (0-0.5); Absolute Monocytes 0.6 K/uL (0.1-1.3); Absolute Neutrophil 4.7 K/uL (1.8-8.0); Basophils % 1.1 % (0-1.3); Eosinophils % 4.4 % (0-4.4); Hematocrit 43.6 % (39.6-49.0); Hemoglobin 14.7 g/dL (13.6-17.9); Lymphocytes % 25.4 % (15.3-44.8); MCH 29.9 pg (27.0-35.0); MCHC 33.7 g/dL (32.0-36.0); MCV 88.6 fL (80-100); MPV 9.2 fL (7.6-11.3); Monocytes % 8.3 % (3.3-12.3); Neutrophils % 60.8 % (41.7-73.7); Platelets 234 thou/uL (152-406); RBC Red Blood Cell Count 4.92 M/uL (4.33-5.43); Red Cell Distribution Width 13.9 % (12.1-15.2)
[2024-03-20 13:57] LABS: Albumin 3.6 g/dL (3.4-5.0); Albumin/Globulin Ratio 1.1 (1.1-1.8); Anion Gap 8.9 mEq/L (5.0-15.0); Bilirubin Total 1.6 mg/dL (0.2-1.0); Globulin 3.4 g/dL (2.3-3.5); Potassium 3.9 mEq/L (3.5-5.1)
[2024-03-20] MEDS ORDERED: NA CHLORIDE 0.9% 1,000 ML ONE (14:09)
[2024-03-20] MEDS ORDERED: KETOROLAC 30 MG/ML INJ ONE (14:09)
[2024-03-20] MEDS ORDERED: ONDANSETRON 4 MG/2 ML VIAL ONE (14:09)
--- NOTE | 2024-03-20 15:26 | RAD REPORT ---
EXAM DESCRIPTION: CT - [place] Protocol - 03/20/2024 1:25 pm CLINICAL HISTORY: FLANK PAIN COMPARISON: No comparisons TECHNIQUE: Thin cut axial CT imaging of the abdomen and pelvis was performed without IV contrast. Mu ltiplanar reformats were generated and reviewed. All CT scans are performed using dose optimization technique as appropriate and may include automated exposure control or mA/KV adjustment according to patient size. FINDINGS: No suspicious findings in the lung bases. The liver, spleen, adrenal glands, and pancreas show no suspicious findings. Gallbladder and biliary tree are also without suspicious finding. Symmetric renal contour, without suspicious parenchymal findings within limits of noncontrast techniq ue. No evidence of radiopaque calculi or hydroureteronephrosis. No dilated bowel loops or bowel wall thickening. Colonic diverticulosis. No free air, free fluid or i nflammatory stranding. No hernia, mass or bulky lymphadenopathy. The urinary bladder is decompressed, limiting evaluation. No suspicious bony findings. IMPRESSION: No acute intra-abdominal process. Colonic diverticulosis.
--- NOTE | 2024-03-20 15:32 | ER ---
Nurse's Notes [facility] Name: Rod Martines Age: 63 yrs Sex: Male : 1960 Arrival Date: 03/20/2024 Time: 12:29 Bed 13 Private MD: Diagnosis: Flank pain Presentation: 03/20 13:12 Chief complaint: Patient states: Left lower back pain for over a week. Coronavirus ko1 screen: At this time, the client does not indicate any symptoms associated with coronavirus-19. Ebola Screen: No symptoms or risks identified at this time. Initial Sepsis Screen: Does the patient meet any 2 criteria? No. Patient's initial sepsis screen is negative. Does the patient have a suspected source of infection? No. Patient's initial sepsis screen is negative. Risk Assessment: Do you want to hurt yourself or someone else? Patient reports no desire to harm self or others. Onset of symptoms is unknown. 13:12 Method Of Arrival: Ambulatory ko1 13:12 Acuity: NEAL 3 ko1 Triage Assessment: 13:13 General: Appears in no apparent distress. Behavior is calm, cooperative, appropriate ko1 for age. Pain: Complains of pain in left low back and left mid back. Historical: - Allergies: 13:13 No Known Allergies; ko1 - Home Meds: 13:13 Metformin Oral [Active]; ko1 - PMHx: 13:13 Diabetes - NIDDM; High Cholesterol; Hypertension; ko1 - Immunization history:: Adult Immunizations unknown. - Infectious Disease History:: Denies. - Social history:: Smoking status: Patient denies any tobacco usage or history of. Screenin:15 [facility] ED Fall Risk Assessment (Adult) History of falling in the last 3 months, me1 including since admission No falls in past 3 months (0 pts) Confusion or Disorientation No (0 pts) Intoxicated or Sedated No (0 pts) Impaired Gait No (0 pts) Mobility Assist Device Used No (0 pt) Altered Elimination No (0 pt) Score/Fall Risk Level 0 - 2 = Low Risk Maintained a safe environment, Provided non-skid footwear, Hourly rounding (assess needs \T\ fall precautionary measures) done. Abuse screen: Denies threats or abuse. Nutritional screening: No deficits noted. Tuberculosis screening: No symptoms or risk factors identified. Assessment: 13:15 General: Appears uncomfortable, well groomed, well developed, well nourished, Behavior me1 is calm, cooperative, appropriate for age, Reports Left lower back pain for over a week. Pain: Complains of pain in back and left mid back and left low back Pain does not radiate. Pain currently is 8 out of 10 on a pain scale. Quality of pain is described as sharp, Pain began suddenly, Is continuous. Neuro: Level of Consciousness is awake, alert, obeys commands, Oriented to person, place, time, situation, Appropriate for age. Cardiovascular: Capillary refill Patient's skin is warm and dry. Respiratory: Airway is patent Respiratory effort is even, unlabored, Respiratory pattern is regular, symmetrical. GI: No signs and/or symptoms were reported involving the gastrointestinal system. : No signs and/or symptoms were reported regarding the genitourinary system. EENT: No signs and/or symptoms were reported regarding the EENT system. Derm: Skin is intact, is healthy with good turgor, Skin is pink, warm \T\ dry. Musculoskeletal: Circulation, motion, and sensation intact. Reports pain in left mid back and left low back and back since a week ago. Vital Signs: 13:12 BP 120 / 82; Pulse 65; Resp 16; Temp 98; Pulse Ox 99% ; ko1 ED Course: 12:30 Patient arrived in ED. rg4 12:35 Sushant Vargas MD is Attending Physician. nicola 13:13 Triage completed. ko1 13:13 Arm band placed on right wrist. Patient placed in an exam room, on a stretcher, on ko1 pulse oximetry, Patient notified of wait time. 13:14 Radha Meyer FNP-C is PHCP. kb 13:15 Patient has correct armband on for positive identification. Bed in low position. Call me1 light in reach. Side rails up X2. Provided Education on: POC. Verbalized understanding.. Client placed on continuous cardiac and pulse oximetry monitoring. NIBP monitoring applied. Pulse ox on. NIBP on. 13:15 No provider procedures requiring assistance completed. me1 13:26 CT Stone Protocol In Process Unspecified. EDMS 13:34 Urinalysis w/ reflexes Sent. em1 13:34 Comprehensive Metabolic Panel Sent. em1 13:34 CBC with Diff Sent. em1 13:34 Initial lab(s) drawn, by me, sent to lab. Inserted saline lock: 22 gauge in right em1 antecubital area, using aseptic technique. Blood collected. 14:06 Fannie Allen, RN is Primary Nurse. me1 15:40 IV discontinued, intact, bleeding controlled, No redness/swelling at site. Pressure me1 dressing applied. Administered Medications: 13:14 CANCELLED (Physician Discretion): Decadron - [id number] mg IVP once kb 13:14 CANCELLED (Physician Discretion): morphineor iv 4 mg IVP once over 4 mins kb 13:14 CANCELLED (Physician Discretion): [id number] mg PO once kb 14:16 Drug: NS 0.9% IV 1000 ml IV at 1 bolus Per protocol; 1000 mL bolus Route: IV; Rate: 1 me1 bolus; Site: right antecubital; 15:48 Follow up: Response: No adverse reaction; IV Status: Completed infusion me1 14:16 Drug: Ketorolac IVP 30 mg IVP once Route: IVP; Site: right antecubital; me1 15:48 Follow up: Response: No adverse reaction; Pain is decreased me1 14:16 Drug: Ondansetron IVP 4 mg IVP once; over 2 minutes Route: IVP; Site: right antecubital;me1 15:48 Follow up: Response: No adverse reaction; Nausea is decreased me1 Medication: 13:15 VIS not applicable for this client. me1 Outcome: 15:31 Discharge ordered by . kb 15:40 Discharged to home ambulatory, with significant other, me1 15:40 Condition: stable 15:40 Discharge instructions given to patient, significant other, Instructed on discharge instructions, follow up and referral plans. Demonstrated understanding of instructions, follow-up care, 15:49 Patient left the ED. me1 Signatures: Dispatcher [employer] EDMT Radha Meyer, FACILITIES TECHNICIAN-Carlos FACILITIES TECHNICIAN-Sushant Randle MD MD cha Martinez, Eric em1 Edie Hameed rg4 Lula Arzate, RN RN ko1 Fannie Allen, RN RN me1 Corrections: (The following items were deleted from the chart) 16:00 13:12 Chief complaint: Patient states: Left lower back pain for over a week ko1 me1
--- NOTE | 2024-03-20 15:32 | EDPHYS ---
Physician Documentation [facility] Name: Rod Martines Age: 63 yrs Sex: Male : 1960 Arrival Date: 03/20/2024 Time: 12:29 Bed 13 Private MD: ED Physician Sushant Vargas HPI: 03/20 15:40 This 63 yrs old Male presents to ER via Ambulatory with complaints of Low Back Pain. kb 15:40 Pt is a 63 year old male who presents for right flank pain that started a week ago and kb has been intermittent. States the pain was worse yesterday. Denies urinary symptoms, n/v/d, fever. Denies any aggravating or alleviating factors. . Historical: - Allergies: 13:13 No Known Allergies; ko1 - Home Meds: 13:13 Metformin Oral [Active]; ko1 - PMHx: 13:13 Diabetes - NIDDM; High Cholesterol; Hypertension; ko1 - Immunization history:: Adult Immunizations unknown. - Infectious Disease History:: Denies. - Social history:: Smoking status: Patient denies any tobacco usage or history of. ROS: 15:38 Constitutional: As per HPI kb Exam: 15:38 Constitutional: This is a well developed, well nourished patient who is awake, alert, kb and in no acute distress. Head/Face: Normocephalic, atraumatic. ENT: Moist Mucous membranes Cardiovascular: Regular rate Respiratory: Respirations even and unlabored. No increased work of breathing. Talking in full sentences Abdomen/GI: Soft, non-tender. No distention Skin: Warm, dry with normal turgor. Normal color. MS/ Extremity: Pulses equal, no cyanosis. Neurovascular intact. Full, normal range of motion. Neuro: Awake and alert, GCS 15, oriented to person, place, time, and situation. Moves all extremities. Normal gait. 15:38 Back: CVA tenderness, that is mild, is noted on the right, Vital Signs: 13:12 BP 120 / 82; Pulse 65; Resp 16; Temp 98; Pulse Ox 99% ; ko1 MDM: 12:35 Patient medically screened. nicola 15:39 Differential diagnosis: strain, UTI, kidney stone. Data reviewed: vital signs, nurses kb notes. I considered the following discharge prescriptions or medication management in the emergency department Antibiotics: At this time antibiotics are not recommended. Counseling: I had a detailed discussion with the patient and/or guardian regarding the historical points, exam findings, and any diagnostic results supporting the discharge/admit diagnosis, lab results, radiology results, the need for outpatient follow up, a family practitioner, to return to the emergency department if symptoms worsen or persist or if there are any questions or concerns that arise at home. 03/20 13:10 Order name: CBC with Diff; Complete Time: 13:50 [facility] 03/20 13:10 Order name: Comprehensive Metabolic Panel; Complete Time: 14:05 [facility] 03/20 13:10 Order name: Urinalysis w/ reflexes; Complete Time: 13:50 [facility] 03/20 13:15 Order name: CT Stone Protocol; Complete Time: 15:28 kb 03/20 13:15 Order name: IV Start; Complete Time: 13:34 kb Administered Medications: 13:14 CANCELLED (Physician Discretion): Decadron - [id number] mg IVP once kb 13:14 CANCELLED (Physician Discretion): morphineor iv 4 mg IVP once over 4 mins kb 13:14 CANCELLED (Physician Discretion): [id number] mg PO once kb 14:16 Drug: NS 0.9% IV 1000 ml IV at 1 bolus Per protocol; 1000 mL bolus Route: IV; Rate: 1 me1 bolus; Site: right antecubital; 15:48 Follow up: Response: No adverse reaction; IV Status: Completed infusion me1 14:16 Drug: Ketorolac IVP 30 mg IVP once Route: IVP; Site: right antecubital; me1 15:48 Follow up: Response: No adverse reaction; Pain is decreased me1 14:16 Drug: Ondansetron IVP 4 mg IVP once; over 2 minutes Route: IVP; Site: right antecubital;me1 15:48 Follow up: Response: No adverse reaction; Nausea is decreased me1 Disposition Summary: 03/20/24 15:31 Discharge Ordered Notes: Location: Home Condition: Stable kb Diagnosis - Flank pain kb Followup: kb - With: Emergency Department - When: As needed - Reason: Worsening of condition Followup: kb - With: Private Physician - When: 2 - 3 days - Reason: Recheck today's complaints, Continuance of care, Re-evaluation by your physician Discharge Instructions: - Discharge Summary Sheet kb - Flank Pain, Adult, [id number] kb Forms: - Medication Reconciliation Form kb - Antibiotic Education kb - Prescription Opioid Use kb - Patient Portal Instructions kb - Leadership Thank You Letter kb Prescriptions: - Diclofenac Sodium 75 mg Oral tablet, delayed release (enteric coated) - take 1 tablet ORAL route 2 times per day As needed; 30 tablet; Refills: 0, kb Product Selection Permitted - orphenadrine citrate 100 mg Oral Tablet Sustained Release - take 1 tablet ORAL route 2 times per day As needed; 20 tablet; Refills: 0, kb Product Selection Permitted Signatures: Dispatcher [employer] EDNV Radha Meyer, ALMAZ-C NURSE INTERN-Sushant Randle MD MD cha Oliver, Kathy, RN RN ko1 Fannie Allen RN RN me1 Corrections: (The following items were deleted from the chart) 13:14 13:10 Decadron - Dexamethasone IVP 10 mg IVP once ordered. nicola kb 13:14 13:10 morphine IVP or IV 4 mg IVP once over 4 mins ordered. nicola kb 13:14 13:10 Diazepam PO 10 mg PO once ordered. [facility] kb
[2024-03-20 16:10] VITALS: BP 120/82; TEMP 98; O2SAT 99
== END 2024-03-20 15:49 | disposition home or self-care (01) ==
LOC: ER 12:29
DX: R10.9 Unspecified abdominal pain (principal); M54.50 Low back pain, unspecified
CPT/HCPCS: 85025; 36415; 81003; 80053; 76377; 74176; J2405; J7030

== ENCOUNTER 2024-03-27 13:28 | Emergency (ER) | payer BC ==
[2024-03-27] MEDS ORDERED: KETOROLAC 30 MG/ML INJ ONE (13:49)
--- NOTE | 2024-03-27 14:18 | RAD REPORT ---
EXAM DESCRIPTION: RAD - Knee Left 3 View - 03/27/2024 2:05 pm CLINICAL HISTORY: PAIN COMPARISON: No comparisons FINDINGS/IMPRESSION: No acute fracture. No malalignment. No significant focal degenerative changes.
--- NOTE | 2024-03-27 14:23 | EDPHYS ---
Physician Documentation [facility] Name: Rod Martines Age: 63 yrs Sex: Male : 1960 Arrival Date: 03/27/2024 Time: 13:28 Bed 9 Private MD: ED Physician Sushant Vargas HPI: 03/27 14:20 This 63 yrs old Male presents to ER via Ambulatory with complaints of Knee Pain. kb 14:20 Pt is a 63 year old male who presents with left knee pain that started this morning and kb has gotten worse throughout the day. denies any injury/trauma. states he has had meniscus problems in the past. . Historical: - Allergies: 13:37 No Known Allergies; tl4 - Home Meds: 13:37 metformin 1,000 mg oral tablet 2 times per day [Active]; atorvastatin oral [Active]; tl4 Famotidine Oral [Active]; cetirizine 10 mg oral tablet daily [Active]; - PMHx: 13:37 Diabetes - NIDDM; High Cholesterol; Hypertension; tl4 - Immunization history:: Adult Immunizations unknown. - Infectious Disease History:: Denies. - Social history:: Smoking status: Patient denies any tobacco usage or history of. ROS: 14:20 Constitutional: As per HPI kb Exam: 14:20 Constitutional: This is a well developed, well nourished patient who is awake, alert, kb and in no acute distress. Head/Face: Normocephalic, atraumatic. ENT: Moist Mucous membranes Cardiovascular: Regular rate Respiratory: Respirations even and unlabored. No increased work of breathing. Talking in full sentences Abdomen/GI: Soft, non-tender. No distention Skin: Warm, dry with normal turgor. Normal color. Neuro: Awake and alert, GCS 15, oriented to person, place, time, and situation. Moves all extremities. Normal gait. 14:20 Musculoskeletal/extremity: Extremities: grossly normal except: noted in the medial aspect of left knee: pain, tenderness, ROM: intact in all extremities, Circulation is intact in all extremities. Sensation intact. Weight bearing: able to fully bear weight, Vital Signs: 13:35 BP 143 / 78; Pulse 96; Resp 20; Temp 97.5(TE); Pulse Ox 99% on R/A; Weight 79.38 kg; tl4 Height 5 ft. 8 in. ; Pain 6/10; 13:35 Body Mass Index 26.61 (79.38 kg, 172.72 cm) tl4 13:35 Pain Scale: Adult tl4 MDM: 13:37 Patient medically screened. kb 14:20 Differential diagnosis: fracture, sprain, strain. Data reviewed: vital signs, nurses kb notes. Counseling: I had a detailed discussion with the patient and/or guardian regarding the historical points, exam findings, and any diagnostic results supporting the discharge/admit diagnosis, radiology results, the need for outpatient follow up, a orthopedic surgeon, to return to the emergency department if symptoms worsen or persist or if there are any questions or concerns that arise at home. 03/27 13:43 Order name: Knee Left 3 View XRAY; Complete Time: 14:18 kb 03/27 14:21 Order name: Greg Wrap; Complete Time: 14:39 kb Administered Medications: 13:54 Drug: Ketorolac IM 30 mg IM once Route: IM; Site: right deltoid; as6 14:39 Follow up: Response: No adverse reaction as6 Disposition Summary: 03/27/24 14:22 Discharge Ordered Notes: Location: Home kb Condition: Stable kb Diagnosis - Pain in left knee kb Followup: kb - With: Emergency Department - When: As needed - Reason: Worsening of condition Followup: kb - With: Private Physician - When: 2 - 3 days - Reason: Recheck today's complaints, Continuance of care, Re-evaluation by your physician Discharge Instructions: - Discharge Summary Sheet kb - Musculoskeletal Pain kb - Acute Knee Pain, Adult, [id number] kb Forms: - Medication Reconciliation Form kb - Antibiotic Education kb - Prescription Opioid Use kb - Patient Portal Instructions kb - Leadership Thank You Letter kb - Work release form iw Prescriptions: - Diclofenac Sodium 75 mg Oral tablet, delayed release (enteric coated) - take 1 tablet ORAL route 2 times per day As needed; 30 tablet; Refills: 0, kb Product Selection Permitted - orphenadrine citrate 100 mg Oral Tablet Sustained Release - take 1 tablet ORAL route 2 times per day As needed; 20 tablet; Refills: 0, kb Product Selection Permitted Signatures: Dispatcher [employer] Radha Tiwari FNP-C FNP-Marshall George RN RN as6 Logdahl, Ralph, RN RN tl4
--- NOTE | 2024-03-27 14:23 | ER ---
Nurse's Notes [facility] Name: Rod Martines Age: 63 yrs Sex: Male : 1960 Arrival Date: 03/27/2024 Time: 13:28 Bed 9 Private MD: Diagnosis: Pain in left knee Presentation: 03/27 13:35 Chief complaint: Patient states: Pt c/o left knee pain since last night. Pt denies any tl4 injury. Pt also c/o pain in sciatic nerve in left leg x a couple of hours. Coronavirus screen: At this time, the client does not indicate any symptoms associated with coronavirus-19. Ebola Screen: No symptoms or risks identified at this time. Initial Sepsis Screen: Does the patient meet any 2 criteria? No. Patient's initial sepsis screen is negative. Does the patient have a suspected source of infection? No. Patient's initial sepsis screen is negative. Risk Assessment: Do you want to hurt yourself or someone else? Patient reports no desire to harm self or others. Onset of symptoms was March 26, 2024. 13:35 Method Of Arrival: Ambulatory tl4 13:35 Acuity: NEAL 4 tl4 Triage Assessment: 13:39 General: Appears uncomfortable, Behavior is calm, cooperative. Pain: Complains of pain tl4 in left leg. EENT: No signs and/or symptoms were reported regarding the EENT system. Neuro: Level of Consciousness is awake, alert, obeys commands, Oriented to person, place, time, situation, Moves all extremities. Full function Gait is steady. Cardiovascular: Capillary refill < 3 seconds Patient's skin is warm and dry. Respiratory: Airway is patent Respiratory effort is even, unlabored, Respiratory pattern is regular, symmetrical. GI: No signs and/or symptoms were reported involving the gastrointestinal system. : No signs and/or symptoms were reported regarding the genitourinary system. Derm: No signs and/or symptoms reported regarding the dermatologic system. Musculoskeletal: Reports pain in left knee. Historical: - Allergies: 13:37 No Known Allergies; tl4 - Home Meds: 13:37 metformin 1,000 mg oral tablet 2 times per day [Active]; atorvastatin oral [Active]; tl4 Famotidine Oral [Active]; cetirizine 10 mg oral tablet daily [Active]; - PMHx: 13:37 Diabetes - NIDDM; High Cholesterol; Hypertension; tl4 - Immunization history:: Adult Immunizations unknown. - Infectious Disease History:: Denies. - Social history:: Smoking status: Patient denies any tobacco usage or history of. Screenin:46 [facility] ED Fall Risk Assessment (Adult) History of falling in the last 3 months, as6 including since admission No falls in past 3 months (0 pts) Confusion or Disorientation No (0 pts) Intoxicated or Sedated No (0 pts) Impaired Gait No (0 pts) Mobility Assist Device Used No (0 pt) Altered Elimination No (0 pt) Score/Fall Risk Level 0 - 2 = Low Risk Oriented to surroundings, Maintained a safe environment, Educated pt \T\ family on fall prevention, incl call for assistance when getting out of bed, Assessed \T\ reinforced patient's understanding of fall precautions. Abuse screen: Denies threats or abuse. Denies injuries from another. Nutritional screening: No deficits noted. Tuberculosis screening: No symptoms or risk factors identified. Assessment: 14:40 Reassessment: Patient appears in no apparent distress at this time. Patient and/or as6 family updated on plan of care and expected duration. Pain level reassessed. Patient is alert, oriented x 3, equal unlabored respirations, skin warm/dry/pink. Patient states feeling better. Vital Signs: 13:35 BP 143 / 78; Pulse 96; Resp 20; Temp 97.5(TE); Pulse Ox 99% on R/A; Weight 79.38 kg; tl4 Height 5 ft. 8 in. ; Pain 6/10; 13:35 Body Mass Index 26.61 (79.38 kg, 172.72 cm) tl4 13:35 Pain Scale: Adult tl4 ED Course: 13:35 Patient arrived in ED. tl4 13:37 Radha Meyer FNP-C is PHCP. kb 13:37 Sushant Vargas MD is Attending Physician. kb 13:37 Triage completed. tl4 13:40 Arm band placed on left wrist. tl4 13:45 Marshall Mallory, JAKE is Primary Nurse. as6 13:46 Bed in low position. Call light in reach. as6 14:07 Knee Left 3 View XRAY In Process Unspecified. EDMS 14:40 Provided Education on: follow up. as6 14:40 No provider procedures requiring assistance completed. Patient did not have IV access as6 during this emergency room visit. Greg wrap to left knee. Administered Medications: 13:54 Drug: Ketorolac IM 30 mg IM once Route: IM; Site: right deltoid; as6 14:39 Follow up: Response: No adverse reaction as6 Medication: 13:46 VIS not applicable for this client. as6 Outcome: 14:22 Discharge ordered by MD. angela 14:40 Discharged to home ambulatory, as6 14:40 Condition: stable 14:40 Discharge instructions given to patient, Instructed on discharge instructions, follow up and referral plans. medication usage, Demonstrated understanding of instructions, follow-up care, medications, Prescriptions given X 2, 14:41 Patient left the ED. as6 Signatures: Dispatcher [employer] EDMS Radha Meyer, LEGAL REFEREE-C ALMAZ-Marshall George RN RN as6 Ralph Gonzales RN RN tl4
[2024-03-27 14:54] VITALS: BP 143/78; TEMP 97.5; O2SAT 99
== END 2024-03-27 14:41 | disposition home or self-care (01) ==
LOC: ER 13:28
DX: M25.562 Pain in left knee (principal)
CPT/HCPCS: 96372; 99284

== ENCOUNTER 2024-09-23 10:32 | Day surgery (SDC) | payer BC ==
[2024-09-23 11:04] LABS: Absolute Basophils 0.1 K/uL (0-0.5); Absolute Eosinophils 0.1 K/uL (0-0.5); Absolute Lymphocytes (CBC) 1.9 K/uL (0.7-4.9); Absolute Monocytes 0.7 K/uL (0.1-1.3); Absolute Neutrophil 5.8 K/uL (1.8-8.0); Basophils % 0.9 % (0-1.3); Eosinophils % 1.7 % (0-4.4); Hematocrit 46.1 % (39.6-49.0); Hemoglobin 15.1 g/dL (13.6-17.9); Lymphocytes % 22.3 % (15.3-44.8); MCHC 32.7 g/dL (32.0-36.0); MCV 91.7 fL (80-100); MPV 9.6 fL (7.6-11.3); Monocytes % 8.2 % (3.3-12.3); Neutrophils % 66.9 % (41.7-73.7); Platelets 229 thou/uL (152-406); RBC Red Blood Cell Count 5.03 M/uL (4.33-5.43); Red Cell Distribution Width 13.8 % (12.1-15.2)
[2024-09-23] MEDS: NA CHLORIDE 0.9% 1,000 ML ONE (11:19)
[2024-09-23 11:24] LABS: Anion Gap 8.1 mEq/L (5.0-15.0); Potassium 4.1 mEq/L (3.5-5.1)
[2024-09-23] MEDS ORDERED: LIDOCAINE 1% MPF 2 ML AMPULE ONE (13:23)
[2024-09-23] MEDS ORDERED: propofoL 200 MG/20 ML VIAL IV ONE (13:23)
[2024-09-23 14:13] VITALS: TEMP 97.4
[2024-09-23 14:20] VITALS: BP 102/54; O2SAT 100
--- NOTE | 2024-09-24 14:40 | EKG ---
Test Date: 2024-09-23 Test Time: 11:47:54 Licensed Practical Nurse Clinic Nurse: SRIKANTH MEASUREMENT RESULTS: Intervals: Rate: 64 NE: 166 QRSD: 86 QT: 396 QTc: 408 [place]: P: 13 NE: 166 QRS: -11 T: 32 INTERPRETIVE STATEMENTS: Normal sinus rhythm Normal ECG Compared to ECG 09/29/2023 09:35:03 No significant changes Electronically Signed On 09-24-24 14:39:06 MARKETING EFFECTIVENESS MANAGER by Demetri Arango
== END 2024-09-23 14:28 | disposition home or self-care (01) ==
LOC: OR 10:32
PROVIDERS: ATTEND Surgery
PROC: 0DJD8ZZ Inspection of Lower Intestinal Tract, Via Natural or Artificial Opening Endoscopic (ICD-10-PCS; principal; 2024-09-23 12:45)
DX: Z12.11 Encounter for screening for malignant neoplasm of colon (principal); N42.9 Disorder of prostate, unspecified; K57.30 Diverticulosis of large intestine without perforation or abscess without bleeding; K64.8 Other hemorrhoids; Z86.0100 Personal history of colon polyps, unspecified
CPT/HCPCS: 93005; 85025; 80048; 36415; 45378; J2704; J7030

== ENCOUNTER 2025-05-11 06:42 | Emergency (ER) | payer BC ==
--- OUTSIDE RECORDS SUMMARY | 2025-05-11 06:47 | XMS REPORT | Continuity of Care Document ---
Author Name Unknown Address [address] [facility] [address] [place] [address] [facility] Address [address] [facility] [address] [place] [address] Care Team Providers Care [employer] Intern Name Role Phone Bella Dewitt Attending Clinician Unavailable Payers Payer Name Policy Type Policy Number Effective Date Expirati on Date Source [place] [id number] 2021 00:00:00 [facility] Problems Condition Name Condition Details Condition Category Status Onset Date Resolution Date Last Treatment Date Treating Clinician Comments Source [id number] BMI 27.0-27.9, adult Problem [facility] [id number] Toenail fungus Problem [facility] Type 2 diabetes mellitus without complicati on Type 2 diabetes mellitus without complicati on, without long-term current use of insulin Problem [facility] [id number] Type 2 diabetes mellitus with hyperglyce kavita, without long-term current use of insulin Problem [facility] [id number] Generalize d arthritis Problem [facility] [id number] Mixed hyperlipid emia Problem [facility] [id number] Primary osteoarthr itis of left knee Problem [facility] Allergic rhinitis Allergic rhinitis Problem [facility] [id number] Emotional disorder Problem [facility] [id number] Fever blister Problem [facility] [id number] Overweight (BMI 25.0-29.9) Problem [facility] [id number] Intrinsic eczema Problem [facility] [id number] Screening for colon cancer Problem [facility] Social History Social Habit Start Date Stop Date Quantity Comments Source History of Tobacco Use [facility] Sex Assigned At [facility] Smoking Status Start Date Stop Date Source Never Smoker [facility] Former Smoker 2024-03-29 00:00:00 2024-03-29 00:00:00 [facility] Medications Ordered Medication Name Filled Medication Name Start Date Stop Date Current Medication? Ordering Clinician Indication Dosage Frequency Signature (SIG) Comments Components Source valACYclovi r HCl 1 GM valACYclovi r HCl 1 GM 2023-10 00:00: 00 No 1{table t} QD valACYclov ir HCl 1 GM Triamcinolo ne Acetonide 0.1 % Triamcinolo ne Acetonide 0.1 % 2023-10 00:00: 00 No 1{appli cation} Triamcinol one Acetonide 0.1 % metFORMIN HCl 1000 MG metFORMIN HCl 1000 MG No 1{table t_with_ a_meal} BID metFORMIN HCl 1000 MG Famotidine 20 MG Famotidine 20 MG No 1{table t_at_be dtime_a s_neede d} QD Famotidine 20 MG Rosuvastati n Calcium 20 MG Rosuvastati n Calcium 20 MG No 1{table t} QD Rosuvastat in Calcium 20 MG Cetirizine HCl 10 MG Cetirizine HCl 10 MG No 1{table t} QD Cetirizine HCl 10 MG Diclofenac Sodium 75 MG Diclofenac Sodium 75 MG No 1{table t_as_ne eded} BID Diclofenac Sodium 75 MG Orphenadrin e Citrate ER 100 MG Orphenadrin e Citrate ER 100 MG No Orphenadri ne Citrate ER 100 MG Milk Thistle 175 MG Milk Thistle 175 MG No Milk Thistle 175 MG Immunizations Ordered Immunization Name Filled Immunization Name Date Status Comments Source Flucelvax - single dose syringe Flucelvax - single dose syringe 2022-08-22 11:13:00 Completed [facility] Flucelvax - single dose syringe Flucelvax - single dose syringe 2022-08-22 11:13:00 Completed [facility] Flucelvax - multidose vial Flucelvax - multidose vial 2021-08-19 10:03:00 Completed [facility] Flucelvax - multidose vial Flucelvax - multidose vial 2021-08-19 10:03:00 Completed [facility] Flucelvax - multidose vial Flucelvax - multidose vial 2021-08-19 10:03:00 Completed [facility] Flucelvax - multidose vial Flucelvax - multidose vial 2021-08-19 10:03:00 Completed [facility] Flucelvax - multidose vial Flucelvax - multidose vial 2021-08-19 10:03:00 [facility] Fluarix (IIV3) - SDS - 0.5mL Fluarix (IIV3) - SDS - 0.5mL 2020-07-23 15:04:00 Completed [facility] Afluria Afluria 2020-07-23 15:04:00 Completed [facility] Afluria Afluria 2020-07-23 15:04:00 Completed [facility] Afluria Afluria 2020-07-23 15:04:00 Completed [facility] Afluria Afluria 2020-07-23 15:04:00 Completed [facility] Flucelvax - single dose syringe Flucelvax - single dose syringe 2019-09-11 10:22:00 Completed [facility] Flucelvax - single dose syringe Flucelvax - single dose syringe 2019-09-11 10:22:00 Completed [facility] Flucelvax - single dose syringe Flucelvax - single dose syringe 2019-09-11 10:22:00 Completed [facility] Flucelvax - single dose syringe Flucelvax - single dose syringe 2019-09-11 10:22:00 Completed [facility] Flucelvax - single dose syringe Flucelvax - single dose syringe 2019-09-11 10:22:00 Completed [facility] Flucelvax (ccIIV4) - SDS - 0.5mL Flucelvax (ccIIV4) - SDS - 0.5mL 2019-09-11 00:00:00 Completed [facility] Flucelvax - multidose vial Flucelvax - multidose vial 2018-09-26 09:17:00 Completed [facility] Flucelvax - multidose vial Flucelvax - multidose vial 2018-09-26 09:17:00 Completed [facility] Flucelvax - multidose vial Flucelvax - multidose vial 2018-09-26 09:17:00 Completed [facility] Flucelvax - multidose vial Flucelvax - multidose vial 2018-09-26 09:17:00 Completed [facility] Flucelvax - multidose vial Flucelvax - multidose vial 2018-09-26 09:17:00 Completed [facility] Flucelvax (ccIIV4) - MDV - 0.5mL Flucelvax (ccIIV4) - MDV - 0.5mL 2018-09-26 00:00:00 Completed [facility] Flucelvax - multidose vial Flucelvax - multidose vial Unknown Completed [facility] Afluria Afluria Unknown Completed [facility] Flucelvax - single dose syringe Flucelvax - single dose syringe Unknown Completed [facility] Flucelvax (ccIIV4) - MDV - 0.5mL Flucelvax (ccIIV4) - MDV - 0.5mL Unknown Completed [facility] Afluria Afluria Unknown Completed [facility] Flucelvax (ccIIV4) - SDS - 0.5mL Flucelvax (ccIIV4) - SDS - 0.5mL Unknown Completed [facility] Flucelvax (ccIIV4) - MDV - 0.5mL Flucelvax (ccIIV4) - MDV - 0.5mL Unknown Completed [facility] Afluria Afluria Unknown Completed [facility] Flucelvax (ccIIV4) - SDS - 0.5mL Flucelvax (ccIIV4) - SDS - 0.5mL Unknown Completed [facility] Flucelvax (ccIIV4) - MDV - 0.5mL Flucelvax (ccIIV4) - MDV - 0.5mL Unknown Completed [facility] Afluria Afluria Unknown Completed [facility] Flucelvax (ccIIV4) - SDS - 0.5mL Flucelvax (ccIIV4) - SDS - 0.5mL Unknown Completed [facility] Flucelvax (ccIIV4) - MDV - 0.5mL Flucelvax (ccIIV4) - MDV - 0.5mL Unknown Completed [facility] Afluria Afluria Unknown Completed [facility] Flucelvax (ccIIV4) - SDS - 0.5mL Flucelvax (ccIIV4) - SDS - 0.5mL Unknown Completed [facility] Vital Signs Vital Name Observation Time Observation Value Comments S ource height 2025-03-03 15:00:00 67.5 [in_i] Comm on [facility] weight 2025-03-03 15:00:00 162.6 [lb_av] Co mmon [facility] temperature 2025-03-03 15:00:00 97.6 [degF] Com mon [facility] bmi 2025-03-03 15:00:00 25.09 kg/m2 Comm on [facility] oximetry 2025-03-03 15:00:00 98 % Commo n [facility] respiratory rate 2025-03-03 15:00:00 15 /min [facility] blood pressure systolic 2025-03-03 15:00:00 128 mm[facility]Hg[facility] blood pressure diastolic 2025-03-03 15:00:00 64 mm[Hg] [facility] height 2024-08-12 14:40:00 67.5 [in_i] Comm on [facility] weight 2024-08-12 14:40:00 163.6 [lb_av] Co mmon [facility] temperature 2024-08-12 14:40:00 97.7 [degF] Com [facility] bmi 2024-08-12 14:40:00 25.24 kg/m2 Comm on [facility] oximetry 2024-08-12 14:40:00 97 % Commo n [facility] respiratory rate 2024-08-12 14:40:00 16 /min [facility] blood pressure systolic 2024-08-12 14:40:00 137 mm[Hg] [facility] blood pressure diastolic 2024-08-12 14:40:00 78 mm[Hg] [facility] height 2024-08-12 14:40:00 67.5 [in_i] Comm on [facility] weight 2024-08-12 14:40:00 163.6 [lb_av] Co mmon [facility] temperature 2024-08-12 14:40:00 97.7 [degF] Com [facility] bmi 2024-08-12 14:40:00 25.24 kg/m2 Comm on [facility] oximetry 2024-08-12 14:40:00 97 % Commo n [facility] respiratory rate 2024-08-12 14:40:00 16 /min Common [facility] blood pressure systolic 2024-08-12 14:40:00 137 mm[Hg] [facility] blood pressure diastolic 2024-08-12 14:40:00 78 mm[Hg] [facility] height 2024-04-22 14:30:00 67.5 [in_i] Comm on [facility] weight 2024-04-22 14:30:00 162 [lb_av] Comm on [facility] temperature 2024-04-22 14:30:00 98.5 [degF] Com mon [facility] bmi 2024-04-22 14:30:00 25 kg/m2 Commo n [facility] blood pressure systolic 2024-04-22 14:30:00 120 mm[Hg] [facility] blood pressure diastolic 2024-04-22 14:30:00 82 mm[Hg] [facility] height 2024-04-12 08:20:00 67.5 [in_i] Comm on [facility] weight 2024-04-12 08:20:00 162.8 [lb_av] Co mmon [facility] temperature 2024-04-12 08:20:00 97.4 [degF] Com mon [facility] bmi 2024-04-12 08:20:00 25.12 kg/m2 Comm on [facility] oximetry 2024-04-12 08:20:00 97 % Commo n [facility] respiratory rate 2024-04-12 08:20:00 15 /min Common [facility] blood pressure systolic 2024-04-12 08:20:00 128 mm[Hg] [facility] blood pressure diastolic 2024-04-12 08:20:00 76 mm[Hg] [facility] height 2024-04-12 08:20:00 67.5 [in_i] Comm on [facility] weight 2024-04-12 08:20:00 162.8 [lb_av] Co on [facility] temperature 2024-04-12 08:20:00 97.4 [degF] Com mon [facility] bmi 2024-04-12 08:20:00 25.12 kg/m2 Comm on [facility] oximetry 2024-04-12 08:20:00 97 % Commo n [facility] respiratory rate 2024-04-12 08:20:00 15 /min Common [facility] blood pressure systolic 2024-04-12 08:20:00 128 mm[Hg] Common [facility] blood pressure diastolic 2024-04-12 08:20:00 76 mm[Hg] Common [facility] height 2024-03-29 09:00:00 67.5 [in_i] Comm on [facility] weight 2024-03-29 09:00:00 162.8 [lb_av] Co mmon [facility] temperature 2024-03-29 09:00:00 97.5 [degF] Com mon [facility] bmi 2024-03-29 09:00:00 25.12 kg/m2 Comm on [facility] oximetry 2024-03-29 09:00:00 98 % Commo n [facility] respiratory rate 2024-03-29 09:00:00 16 /min Common [facility] blood pressure systolic 2024-03-29 09:00:00 117 mm[Hg] [facility] blood pressure diastolic 2024-03-29 09:00:00 79 mm[Hg] Common [facility] height 2024-01-11 08:40:00 67.5 [in_i] Comm on [facility] weight 2024-01-11 08:40:00 168.0 [lb_av] Co mmon [facility] temperature 2024-01-11 08:40:00 97.5 [degF] Com [facility] bmi 2024-01-11 08:40:00 25.92 kg/m2 Comm on [facility] oximetry 2024-01-11 08:40:00 100 % Commo n [facility] respiratory rate 2024-01-11 08:40:00 16 /min Common [facility] blood pressure systolic 2024-01-11 08:40:00 135 mm[Hg] [facility] blood pressure diastolic 2024-01-11 08:40:00 76 mm[Hg] [facility] height 2023-09-11 08:00:00 67.5 [in_i] Comm on [facility] weight 2023-09-11 08:00:00 171.0 [lb_av] Co on [facility] temperature 2023-09-11 08:00:00 97.7 [degF] Com [facility] bmi 2023-09-11 08:00:00 26.38 kg/m2 Comm on [facility] oximetry 2023-09-11 08:00:00 98 % Commo n [facility] respiratory rate 2023-09-11 08:00:00 16 /min Common [facility] blood pressure systolic 2023-09-11 08:00:00 135 mm[Hg] [facility] blood pressure diastolic 2023-09-11 08:00:00 79 mm[Hg] Common [facility] height 2023-05-11 10:40:00 67.5 [in_i] Comm on [facility] weight 2023-05-11 10:40:00 174.6 [lb_av] [facility] 2023-05-11 10:40:00 98.0 [degF] Com [facility] bmi 2023-05-11 10:40:00 26.94 kg/m2 Comm on [facility] oximetry 2023-05-11 10:40:00 97 % Commo n [facility] respiratory rate 2023-05-11 10:40:00 16 /min [facility] blood pressure systolic 2023-05-11 10:40:00 135 mm[Hg] [facility] blood pressure diastolic 2023-05-11 10:40:00 73 mm[Hg] [facility] height 2022-09-28 08:20:00 67.5 [in_i] Comm on [facility] weight 2022-09-28 08:20:00 174.6 [lb_av] Co [facility] temperature 2022-09-28 08:20:00 97.5 [degF] Com [facility] bmi 2022-09-28 08:20:00 26.94 kg/m2 Comm on [facility] oximetry 2022-09-28 08:20:00 96 % Commo n [facility] respiratory rate 2022-09-28 08:20:00 16 /min [facility] blood pressure systolic 2022-09-28 08:20:00 133 mm[Hg] Common [facility] blood pressure diastolic 2022-09-28 08:20:00 78 mm[Hg] [facility] height 2022-08-22 11:00:00 67.5 [in_i] Comm on [facility] weight 2022-08-22 11:00:00 173.2 [lb_av] Co [facility] temperature 2022-08-22 11:00:00 97.6 [degF] Com [facility] bmi 2022-08-22 11:00:00 26.72 kg/m2 Comm on [facility] oximetry 2022-08-22 11:00:00 97 % Commo n [facility] respiratory rate 2022-08-22 11:00:00 16 /min Common [facility] blood pressure systolic 2022-08-22 11:00:00 126 mm[Hg] [facility] blood pressure diastolic 2022-08-22 11:00:00 75 mm[Hg] [facility] height 2022-06-28 08:20:00 67.5 [in_i] Comm on [facility] weight 2022-06-28 08:20:00 175.6 [lb_av] Co mmon [facility] temperature 2022-06-28 08:20:00 97.2 [degF] Com mon [facility] bmi 2022-06-28 08:20:00 27.09 kg/m2 Comm on [facility] oximetry 2022-06-28 08:20:00 98 % Commo n [facility] respiratory rate 2022-06-28 08:20:00 16 /min [facility] blood pressure systolic 2022-06-28 08:20:00 127 mm[Hg] [facility] blood pressure diastolic 2022-06-28 08:20:00 66 mm[Hg] [facility] height 2021-08-19 10:00:00 67.5 [in_i] Comm on [facility] weight 2021-08-19 10:00:00 173 [lb_av] Comm on [facility] temperature 2021-08-19 10:00:00 98.4 [degF] Com mon [facility] bmi 2021-08-19 10:00:00 26.69 kg/m2 Comm on [facility] oximetry 2021-08-19 10:00:00 98 % Commo n [facility] respiratory rate 2021-08-19 10:00:00 16 /min Common [facility] blood pressure systolic 2021-08-19 10:00:00 119 mm[Hg] [facility] blood pressure diastolic 2021-08-19 10:00:00 66 mm[Hg] [facility] Encounters Start Date/Time End Date/Time Encounter Type Admission Type Attending [facility] Care Department Encounter ID Source 2024-11-25 12:30:00 Outpatient Bella Dewitt [facility] [id number] [facility] 2024-08-09 13:21:00 Outpatient Bella Dewitt [facility] [id number] [facility] 2024-08-08 08:50:00 Outpatient Bella Dewitt [facility] [id number] [facility] 2024-04-22 14:19:00 Outpatient Bella Dewitt [facility] [id number] [facility] 2024-04-19 10:38:00 Outpatient Bella Dewitt [facility] [id number] [facility] 2024-01-09 08:56:00 Outpatient Bella Dewitt [facility] [id number] [facility] 2023-09-07 09:59:00 Outpatient Bella Dewitt [facility] [id number] [facility] 2023-08-18 07:52:00 Outpatient Bella Dewitt [facility] [id number] [facility] 2023-05-10 08:24:00 Outpatient Bella Dewitt [facility] [id number] [facility] 2022-08-19 08:59:01 Outpatient Bella Dewitt [facility] [id number] [facility] 2022-06-27 10:15:00 Outpatient Kajal Dewitta [facility] [id number] [facility] 2021-11-18 08:09:01 Outpatient Bella Dewitt STMEERA ST[facility] [id number] [facility] 2021-10-27 14:15:47 Outpatient Bella Dewitt STLMCJ STL[facility]C [id number] [facility] 2021-10-27 14:15:00 Outpatient Bella Dewitt [facility] ST[facility] [id number] [facility] 2021-10-27 14:02:45 Outpatient Bella Dewitt [facility] [id number] [facility] 2021-10-27 14:02:20 Outpatient Bella Dewitt STL[facility]C ST[facility] [id number] [facility] 2021-10-27 13:21:29 Outpatient Bella Dewitt STL[facility]C ST[facility] [id number] [facility] 2021-10-27 12:46:19 Outpatient Bella Dewitt [facility] ST[facility] [id number] [facility] 2021-10-27 11:25:31 Outpatient Bella Dewitt ST[facility] ST[facility] [id number] [facility] 2025-03-11 00:00:00 2025-03-11 00:00:00 (TEL) STLMLC ST[facility] [id number] [facility] 2025-03-05 00:00:00 2025-03-05 00:00:00 (TEL) STLMLC ST[facility] [id number] [facility] 2025-03-03 00:00:00 2025-03-03 00:00:00 OFFICE VISIT ESTAB PT LEVEL 4 [facility] ST[facility] [id number] [facility] 2025-02-03 00:00:00 2025-02-03 00:00:00 (TEL) STLMLC ST[facility] [id number] [facility] 2024-08-12 00:00:00 2024-08-12 00:00:00 (WELLNESS) Wellness Visit STLMLC ST[facility] [id number] [facility] 2024-04-22 00:00:00 2024-04-22 00:00:00 (LENDING ADVISOR) New Patient STLMLC ST[facility]C [id number] [facility] 2024-04-12 00:00:00 2024-04-12 00:00:00 OFFICE VISIT ESTAB PT LEVEL 4 [facility]C ST[facility]C [id number] [facility] 2024-03-29 00:00:00 2024-03-29 00:00:00 OFFICE VISIT ESTAB PT LEVEL 3 [facility]C ST[facility]C [id number] [facility] 2024-03-27 00:00:00 2024-03-27 00:00:00 (TEL) STLMLC ST[facility]C [id number] [facility] 2024-01-26 00:00:00 2024-01-26 00:00:00 (TEL) STLMLC STL[facility]C [id number] [facility] 2024-01-11 00:00:00 2024-01-11 00:00:00 OFFICE VISIT ESTAB PT LEVEL 3 [facility] ST[facility]C [id number] [facility] 2023-09-11 00:00:00 2023-09-11 00:00:00 (WELLNESS) Wellness Visit STLMLC ST[facility]C [id number] [facility] 2023-05-11 00:00:00 2023-05-11 00:00:00 OFFICE VISIT ESTAB PT LEVEL 3 [facility]C ST[facility]C [id number] [facility] 2023-04-14 00:00:00 2023-04-14 00:00:00 (TEL) STLMLC ST[facility]C [id number] [facility] 2022-09-28 00:00:00 2022-09-28 00:00:00 OFFICE VISIT ESTAB PT LEVEL 4 [facility]C STL[facility]C [id number] [facility] 2022-08-22 00:00:00 2022-08-22 00:00:00 PREV VISIT EST AGE 40-64 STLMLC STLMLC [id number] [facility] 2022-06-28 00:00:00 2022-06-28 00:00:00 OFFICE VISIT ESTAB PT LEVEL 4 [facility]LMLC STLMLC [id number] [facility] 2022-05-31 00:00:00 2022-05-31 00:00:00 (TEL) STLMLC STLMLC [id number] [facility] 2021-08-19 00:00:00 2021-08-19 00:00:00 PREV VISIT EST AGE 40-64 STLMLC STLMLC [id number] [facility] 2021-08-09 00:00:00 2021-08-09 00:00:00 (TEL) STLMLC STLMLC [id number] [facility] 2021-03-31 00:00:00 2021-03-31 00:00:00 Outpatient [facility] [id number] [facility] 2020-12-30 00:00:00 2020-12-30 00:00:00 Outpatient [facility] [id number] [facility] 2020-12-29 00:00:00 2020-12-29 00:00:00 Outpatient [facility] [id number] [facility] 2020-12-17 00:00:00 2020-12-17 00:00:00 Outpatient [facility] [id number] [facility] 2020-09-24 00:00:00 2020-09-24 00:00:00 Outpatient [facility] ST[facility] [id number] [facility] 2020-03-12 08:00:00 2020-03-12 08:00:00 Outpatient [facility] [id number] [facility] 2019-09-11 09:40:00 2019-09-11 09:40:00 Outpatient [facility] [id number] [facility] 2019-04-05 11:40:00 2019-04-05 11:40:00 Outpatient [facility] [id number] [facility] 2019-03-28 11:36:00 2019-03-28 11:36:00 Outpatient [facility] [id number] [facility] 2019-01-09 08:20:00 2019-01-09 08:20:00 Outpatient [facility] [id number] [facility] 2018-10-30 11:14:00 2018-10-30 11:14:00 Outpatient [facility] [id number] [facility] 2018-09-28 10:48:00 2018-09-28 10:48:00 Outpatient [facility] [id number] [facility] 2018-09-26 09:00:00 2018-09-26 09:00:00 Outpatient [facility] [id number] [facility] Results Test Description Test Time Test Comments Results Result Co mments Source HEMOGLOBIN A1C WITH [id number] 00:00:00* Test Item Value Reference Range Interpretation Comme nts CREATININE, RANDOM URINE (test code = 2161-8) 134 mg/dL See_Comment N [Automated [employer]] The system which generated this result transmitted reference range: 20-320 mg/dL. The reference range was not used to interpret this result as normal/abnormal. ALBUMIN, URINE (test code = 14997-9) 0.5 mg/dL See Note: mg/dL N ALBUMIN/CREATININE RATIO, RANDOM URINE (test code = 9318-7) 4 mg/g creat See_Comment N [Automated message] The system which generated this result transmitted reference range: <30 mg/g creat. The reference range was not used to interpret this result as normal/abnormal. ABSOLUTE BASOPHILS (test code = 704-7) 108 cells/uL See_Comment N [Automated m essage] The system which generated this result transmitted reference range: 0-200 cells/uL. The reference range was not used to interpret this result as normal/abnormal. ABSOLUTE EOSINOPHILS (test code = 711-2) 400 cells/uL See_Comment N [Automated m essage] The system which generated this result transmitted reference range: 15-500 cells/uL. The reference range was not used to interpret this result as normal/abnormal. ABSOLUTE LYMPHOCYTES (test code = 731-0) 2402 cells/uL See_Comment N [Automated m essage] The system which generated this result transmitted reference range: 850-3900 cells/uL. The reference range was not used to interpret this result as normal/abnormal. ABSOLUTE MONOCYTES (test code = 742-7) 655 cells/uL See_Comment N [Automated m essage] The system which generated this result transmitted reference range: 200-950 cells/uL. The reference range was not used to interpret this result as normal/abnormal. ABSOLUTE NEUTROPHILS (test code = 751-8) 4135 cells/uL See_Comment N [Automated m essage] The system which generated this result transmitted reference range: 4090-1787 cells/uL. The reference range was not used to interpret this result as normal/abnormal. BASOPHILS (test code = 706-2) 1.4 % N EOSINOPHILS (test code = 713-8) 5.2 % N HEMATOCRIT (test code = 4544-3) 43.7 % See_Comment N [Automated messa ge] The system which generated this result transmitted reference range: 38.5-50.0 %. The reference range was not used to interpret this result as normal/abnormal. HEMOGLOBIN (test code = 718-7) 14.2 g/dL See_Comment N [Automated messa ge] The system which generated this result transmitted reference range: 13.2-17.1 g/dL. The reference range was not used to interpret this result as normal/abnormal. LYMPHOCYTES (test code = 736-9) 31.2 % N MCH (test code = 785-6) 29.8 pg See_Comment N [Automated messa ge] The system which generated this result transmitted reference range: 27.0-33.0 pg. The reference range was not used to interpret this result as normal/abnormal. MCHC (test code = 786-4) 32.5 g/dL See_Comment N [Automated messa ge] The system which generated this result transmitted reference range: 32.0-36.0 g/dL. The reference range was not used to interpret this result as normal/abnormal. MCV (test code = 787-2) 91.8 fL See_Comment N [Automated messa ge] The system which generated this result transmitted reference range: 80.0-100.0 fL. The reference range was not used to interpret this result as normal/abnormal. MONOCYTES (test code = 5905-5) 8.5 % N MPV (test code = 776-5) 11.7 fL See_Comment N [Automated messa ge] The system which generated this result transmitted reference range: 7.5-12.5 fL. The reference range was not used to interpret this result as normal/abnormal. NEUTROPHILS (test code = 770-8) 53.7 % N PLATELET COUNT (test code = 777-3) 227 Thousand/uL See_Comment N [Automated message] The system which generated this result transmitted reference range: 140-400 Thousand/uL. The reference range was not used to interpret this result as normal/abnormal. RDW (test code = 788-0) 12.9 % See_Comment N [Automated messa ge] The system which generated this result transmitted reference range: 11.0-15.0 %. The reference range was not used to interpret this result as normal/abnormal. RED BLOOD CELL COUNT (test code = 789-8) 4.76 Million/uL See_Comment N [Automated message] The system which generated this result transmitted reference range: 4.20-5.80 Million/uL. The reference range was not used to interpret this result as normal/abnormal. WHITE BLOOD CELL COUNT (test code = 6690-2) 7.7 Thousand/uL See_Comment N [Automated message] The system which generated this result transmitted reference range: 3.8-10.8 Thousand/uL. The reference range was not used to interpret this result as normal/abnormal. CHOL/HDLC RATIO (test code = 9830-1) 3.5 (calc) See_Comment N [Automated messa ge] The system which generated this result transmitted reference range: <5.0 (calc). The reference range was not used to interpret this result as normal/abnormal. CHOLESTEROL, TOTAL (test code = 2093-3) 114 mg/dL See_Comment N [Automated message] The system which generated this result transmitted reference range: <200 mg/dL. The reference range was not used to interpret this result as normal/abnormal. HDL CHOLESTEROL (test code = 2085-9) 33 mg/dL See_Comment L [Automated messa ge] The system which generated this result transmitted reference range: > OR = 40 mg/dL. The reference range was not used to interpret this result as normal/abnormal. LDL-CHOLESTEROL (test code = 08721-7) 64 mg/dL (calc) N NON HDL CHOLESTEROL (test code = 47489-7) 81 mg/dL (calc) See_Comment N [Automated message] The system which generated this result transmitted reference range: <130 mg/dL (calc). The reference range was not used to interpret this result as normal/abnormal. TRIGLYCERIDES (test code = 2571-8) 90 mg/dL See_Comment N [Automated messa ge] The system which generated this result transmitted reference range: <150 mg/dL. The reference range was not used to interpret this result as normal/abnormal. HEMOGLOBIN A1c (test code = 4548-4) 6.0 % of total Hgb See_Comment H [Automated message] The system which generated this result transmitted reference range: <5.7 % of total Hgb. The reference range was not used to interpret this result as normal/abnormal. MEAN PLASMA GLUCOSE (test code = 75285-4) 136 mg/dL (calc) CBC (INCLUDES DIFF/PLT)2023-05-06 00:00:00* Test Item Value Reference Range Interpretation Comme nts HEMATOCRIT (test code = 4544-3) 43.0 % See_Comment N [Automated messa ge] The system which generated this result transmitted reference range: 38.5-50.0 %. The reference range was not used to interpret this result as normal/abnormal. HEMOGLOBIN (test code = 718-7) 14.3 g/dL See_Comment N [Automated messa ge] The system which generated this result transmitted reference range: 13.2-17.1 g/dL. The reference range was not used to interpret this result as normal/abnormal. MCH (test code = 785-6) 29.5 pg See_Comment N [Automated messa ge] The system which generated this result transmitted reference range: 27.0-33.0 pg. The reference range was not used to interpret this result as normal/abnormal. MCHC (test code = 786-4) 33.3 g/dL See_Comment N [Automated messa ge] The system which generated this result transmitted reference range: 32.0-36.0 g/dL. The reference range was not used to interpret this result as normal/abnormal. MCV (test code = 787-2) 88.8 fL See_Comment N [Automated messa ge] The system which generated this result transmitted reference range: 80.0-100.0 fL. The reference range was not used to interpret this result as normal/abnormal. MPV (test code = 776-5) 11.4 fL See_Comment N [Automated messa ge] The system which generated this result transmitted reference range: 7.5-12.5 fL. The reference range was not used to interpret this result as normal/abnormal. PLATELET COUNT (test code = 777-3) 202 Thousand/uL See_Comment N [Automated message] The system which generated this result transmitted reference range: 140-400 Thousand/uL. The reference range was not used to interpret this result as normal/abnormal. RDW (test code = 788-0) 12.8 % See_Comment N [Automated messa ge] The system which generated this result transmitted reference range: 11.0-15.0 %. The reference range was not used to interpret this result as normal/abnormal. RED BLOOD CELL COUNT (test code = 789-8) 4.84 Million/uL See_Comment N [Automated message] The system which generated this result transmitted reference range: 4.20-5.80 Million/uL. The reference range was not used to interpret this result as normal/abnormal. WHITE BLOOD CELL COUNT (test code = 6690-2) 7.5 Thousand/uL See_Comment N [Automated message] The system which generated this result transmitted reference range: 3.8-10.8 Thousand/uL. The reference range was not used to interpret this result as normal/abnormal.
--- NOTE | 2025-05-11 08:07 | RAD REPORT ---
EXAM: Hand Left 2 View HISTORY: PAIN COMPARISON: None FINDINGS: Bones: No acute fracture identified. Alignment:No significant malalignment. Degenerative changes:Mild interphalangeal joint space narrowing and spurring. Other: n/a IMPRESSION: No acute osseous abnormality involving the imaged hand.
--- NOTE | 2025-05-11 08:12 | ER ---
Nurse's Notes [facility] Name: Rod Martines Age: 64 yrs Sex: Male : 1960 Arrival Date: 05/11/2025 Time: 06:42 Bed 13 Private MD: Diagnosis: Pain in left finger(s) Presentation: 05/11 07:13 Chief complaint: Patient states: Left hand/finger pain x a couple weeks. Coronavirus jl7 screen: At this time, the client does not indicate any symptoms associated with coronavirus-19. Ebola Screen: No symptoms or risks identified at this time. Initial Sepsis Screen: Does the patient meet any 2 criteria? No. Patient's initial sepsis screen is negative. Does the patient have a suspected source of infection? No. Patient's initial sepsis screen is negative. Risk Assessment: Do you want to hurt yourself or someone else? Patient reports no desire to harm self or others. Onset of symptoms is unknown. 07:13 Method Of Arrival: Ambulatory [facility] 07:13 Acuity: NEAL 4 jl7 Triage Assessment: 07:14 General: Appears in no apparent distress. uncomfortable, Behavior is calm, cooperative, jl7 appropriate for age. Pain: Complains of pain in left hand Pain currently is 5 out of 10 on a pain scale. Historical: - Allergies: 07:14 CAT DANDER; jl7 07:14 dog dander; jl7 07:14 MOLD; jl7 - PMHx: 07:14 Diabetes - NIDDM; High Cholesterol; Hypertension; jl7 - Immunization history:: Adult Immunizations unknown. - Infectious Disease History:: Denies. - Social history:: Smoking status: Patient denies any tobacco usage or history of. Screenin:21 [facility] ED Fall Risk Assessment (Adult) History of falling in the last 3 months, db including since admission No falls in past 3 months (0 pts) Confusion or Disorientation No (0 pts) Intoxicated or Sedated No (0 pts) Impaired Gait No (0 pts) Mobility Assist Device Used No (0 pt) Altered Elimination No (0 pt) Score/Fall Risk Level 0 - 2 = Low Risk Oriented to surroundings, Maintained a safe environment. Abuse screen: Denies threats or abuse. Denies injuries from another. Nutritional screening: No deficits noted. Tuberculosis screening: No symptoms or risk factors identified. Assessment: 07:28 Reassessment: Patient appears in no apparent distress at this time. Patient and/or db family updated on plan of care and expected duration. Pain level reassessed. Patient is alert, oriented x 3, equal unlabored respirations, skin warm/dry/pink. General: Appears in no apparent distress. comfortable, Behavior is calm, cooperative. 08:21 Reassessment: Patient appears in no apparent distress at this time. Patient and/or db family updated on plan of care and expected duration. Pain level reassessed. Patient is alert, oriented x 3, equal unlabored respirations, skin warm/dry/pink. Neuro: Level of Consciousness is awake, alert, obeys commands, Oriented to person, place, time, situation. Vital Signs: 07:13 BP 141 / 81; Pulse 59; Resp 15; Temp 97.8; Pulse Ox 97% ; Weight 72.57 kg; Height 5 ft. jl7 8 in. ; Pain 5/10; 08:21 BP 136 / 78; Pulse 60; Resp 16; Pulse Ox 97% ; db 07:13 Body Mass Index 24.33 (72.57 kg, 172.72 cm) jl7 07:13 Pain Scale: Adult jl7 ED Course: 06:47 Patient arrived in ED. gm2 07:04 Kala Lacey MD is Attending Physician. sw6 07:14 Triage completed. jl7 07:14 Arm band placed on right wrist. jl7 07:16 Ashly Arias, JAKE is Primary Nurse. db 08:04 Hand Left 2 View XRAY In Process Unspecified. EDMS 08:11 Anson Alexandra MD is Referral Physician. sw6 08:21 Patient has correct armband on for positive identification. Bed in low position. Call db light in reach. Side rails up X 1. Provided Education on: DISCHARGE. Pulse ox on. NIBP on. Pillow given. 08:21 No provider procedures requiring assistance completed. Patient did not have IV access db during this emergency room visit. Administered Medications: No medications were administered Medication: 08:21 VIS not applicable for this client. db Outcome: 08:11 Discharge ordered by . sw6 08:21 Discharged to home ambulatory, db 08:21 Condition: stable 08:21 Discharge instructions given to patient, Instructed on discharge instructions, follow up and referral plans. 08:22 Patient left the ED. db Signatures: Dispatcher [employer] Carla Nino RN RN jl7 Ashly Arias RN RN db Mitchell, Ginger 2 Kala Lacey MD MD sw6
--- NOTE | 2025-05-11 08:12 | EDPHYS ---
Physician Documentation [facility] Name: Rod Martines Age: 64 yrs Sex: Male : 1960 Arrival Date: 05/11/2025 Time: 06:42 Bed 13 Private MD: ED Physician Kala Lacey HPI: 05/11 08:12 This 64 yrs old Male presents to ER via Ambulatory with complaints of finger sw6 pain. 07:15 The patient or guardian reports pain. The complaints affect the. Onset: The sw6 symptoms/episode began/occurred several weeks ago. the patient presents from home for eval for left 5th digit pain. he reports he had a laceration that was repaired some time in the past. that has since healed but he is still having pain. 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 he is right handed. no fevers. has h/o pre-diabetes but does not take meds yet. he reports his pain is 5/10. no other complaints. denies reinjuring his finger. here for eval.. Historical: - Allergies: 07:14 CAT DANDER; jl7 07:14 dog dander; jl7 07:14 MOLD; jl7 - PMHx: 07:14 Diabetes - NIDDM; High Cholesterol; Hypertension; jl7 - Immunization history:: Adult Immunizations unknown. - Infectious Disease History:: Denies. - Social history:: Smoking status: Patient denies any tobacco usage or history of. ROS: 07:15 MS/extremity: Positive for pain, sw6 07:15 All other systems are negative, 08:12 Constitutional: Negative for fever, chills, and weight loss, Cardiovascular: Negative sw6 for chest pain, palpitations, and edema, Respiratory: Negative for shortness of breath, cough, wheezing, and pleuritic chest pain, Abdomen/GI: Negative for abdominal pain, nausea, vomiting, diarrhea, and constipation, Exam: 07:15 Constitutional: This is a well developed, well nourished patient who is awake, alert, sw6 and in no acute distress. 07:15 Cardiovascular: Rate: normal, 07:15 Respiratory: the patient does not display signs of respiratory distress, Respirations: normal, 07:15 Abdomen/GI: Inspection: abdomen appears normal, 07:15 Musculoskeletal/extremity: +2 radial pulse left side. no deformity to laceration noted to left 5th finger. FROM of dip, pip and mcp joint left 5th finger. . 07:15 Neuro: Exam negative for acute changes, Vital Signs: 07:13 BP 141 / 81; Pulse 59; Resp 15; Temp 97.8; Pulse Ox 97% ; Weight 72.57 kg; Height 5 ft. jl7 8 in. ; Pain 5/10; 08:21 BP 136 / 78; Pulse 60; Resp 16; Pulse Ox 97% ; db 07:13 Body Mass Index 24.33 (72.57 kg, 172.72 cm) 7 07:13 Pain Scale: Adult jl7 MDM: 07:04 Medical Screening Exam initiated sw6 07:15 Differential diagnosis: dislocation, contusion, tendonitis. sw6 08:10 Data reviewed: vital signs, nurses notes, radiologic studies, plain films. ED course: sw6 The patient is doing well here. X-ray of his left hand shows no acute osseous injuries. The patient does report that his pain is worse with bending his finger. The patient was offered a finger splint but does decline as he has 1 at home. Recommend he wear that as needed for comfort. He remained stable here in the ER and is okay for discharge home with PCP follow-up in 1 week.. 05/11 07:14 Order name: Hand Left 2 View XRAY; Complete Time: 08:13 sw6 05/11 08:13 Interpretation: No acute disease. sw6 Administered Medications: No medications were administered Disposition Summary: 05/11/25 08:11 Discharge Ordered Notes: Location: Home sw6 Problem: new sw6 Symptoms: are unchanged sw6 Condition: Stable sw6 Diagnosis - Pain in left finger(s) sw6 Followup: sw6 - With: Anson Alexandra MD - When: 5 - 6 days - Reason: Discharge Instructions: - Discharge Summary Sheet sw6 - Finger Sprain, Adult, [id number] sw6 Forms: - Medication Reconciliation Form sw6 - Antibiotic Education sw6 - Prescription Opioid Use sw6 - Patient Portal Instructions sw6 - Leadership Thank You Letter 6 Signatures: Dispatcher [employer] Carla Nino RN RN jl7 Kala Lacey MD MD sw6
[2025-05-11 08:26] VITALS: TEMP 97.8; O2SAT 97
[2025-05-11 08:28] VITALS: BP 136/78
== END 2025-05-11 08:22 | disposition home or self-care (01) ==
LOC: ER 06:42
DX: M79.645 Pain in left finger(s) (principal)
CPT/HCPCS: 99283